=== PATIENT | female | born 1955 | race Caucasian/White ===

== ENCOUNTER 2017-09-10 14:53 | Inpatient (IN) | payer BC ==
[~2017-09-10] VITALS: Ht 162.6 cm; Wt 79.0 kg
[~2017-09-10 14:53] MED LIST: ALBU18HF2 INH; ASPI81TA30 PO; BUDE10.2 INH; CA C1TAB86 PO; GUAI600T45 PO; LACT1CAP26 PO; METH4TAB3 PO; MULT-933 PO
[2017-09-10] MEDS ORDERED: acetaminophen 325mg tablet PO STA (15:04)
[2017-09-10] MEDS ORDERED: normal saline 1000ML IV soln IV ONE (15:05)
[2017-09-10] MEDS ORDERED: normal saline 1000ML IV soln IVB ONE (15:10)
[2017-09-10] MEDS ORDERED: magnesium 2GM in 50ml NS 50 ML IV ONE (15:10)
[2017-09-10] MEDS ORDERED: albuterol 2.5 MG/3 ML nebule CONTNEB PRN (15:10)
[2017-09-10] MEDS ORDERED: methylPREDNISolone sod succ 125mg/2ml vial IV ONE (15:10)
[2017-09-10 15:51] LABS: ABG BASE EXCESS 4.3 mmol/L (-2.0-3.0); ABG HCO3 30.4 mmol/L (22.0-26.0); ABG OXYGEN SATURATION 94.5 % (95-98); ABG PCO2 (T) 50.5 mmHg (32.0-45.0); ABG PH (T) 7.398 (7.350-7.450); ABG PO2 (T) 76.4 mmHg (83-108); ALLEN'S TEST Positive; FCOHb 4.8 % (0.5-1.5); FLOW 2 L/min; TOTAL HEMOGLOBIN 16.1 G/dl (12.0-16.0)
[2017-09-10 16:03] LABS: BASOPHILS % (AUTO) 0.2 % (0-1); EOSINOPHILS # (AUTO) 0.1 X10'3 (0-0.9); EOSINOPHILS % (AUTO) 1.2 % (0-6); HEMATOCRIT 47.8 % (35.0-45.0); HEMOGLOBIN 15.6 g/dl (12.0-16.0); LYMPHOCYTES # (AUTO) 1.5 X10'3 (1.1-4.8); LYMPHOCYTES % (AUTO) 18.9 % (21-51); MEAN CORPUSCULAR HGB CONC 32.6 % (33.0-36.5); MEAN CORPUSCULAR VOLUME 94.9 FL (78-98); MEAN PLATELET VOLUME 8.6 FL (7.4-10.4); MONOCYTES # (AUTO) 0.6 X10'3 (0-0.9); MONOCYTES % (AUTO) 7.6 % (2-12); NEUTROPHILS # (AUTO) 5.5 X10'3 (1.8-7.7); NEUTROPHILS % (AUTO) 72.1 % (42-75); PLATELET COUNT 160 X10'3 (140-440); RED BLOOD COUNT 5.04 X10'6 (4.20-5.60); RED CELL DISTRIBUTION WIDTH 14.5 % (11.5-14.5); WHITE BLOOD COUNT 7.7 X10'3 (4.5-11.0)
[2017-09-10 16:29] LABS: ALANINE AMINOTRANSFERASE 28 U/L (12-78); ALBUMIN 3.3 G/DL (3.4-5.0); ALKALINE PHOSPHATASE 92 IU/L (46-116); ANION GAP 4 (8-16); ASPARTATE AMINO TRANSFERASE 15 U/L (10-37); BILIRUBIN,TOTAL 0.3 MG/DL (0.1-1.0); BLOOD UREA NITROGEN 14 MG/DL (7-18); BUN/CREATININE RATIO 14.9 (6.6-38.0); CALCIUM 9.9 MG/DL (8.5-10.1); CHLORIDE 110 MMOL/L (99-107); CREATININE 0.94 MG/DL (0.40-0.90); GLUCOSE 102 MG/DL (70-104); POTASSIUM 3.9 MMOL/L (3.5-5.1); SODIUM 148 MMOL/L (135-145); TOTAL CARBON DIOXIDE 34.1 MMOL/L (24-32); TOTAL PROTEIN 6.6 G/DL (6.4-8.2); eGFR 61 ML/MIN
[2017-09-10] MEDS ORDERED: CefTRIAXone 2gm/NS 100ml IVPB 100 ML IV ONE ×2 (16:50→17:15)
[2017-09-10] MEDS ORDERED: CefTRIAXone/dextrose 2GM bag 50 ML IV ONE (17:15)
[2017-09-10] MEDS ORDERED: mag hydrox/Alum hydrox/simeth 30ml oral suspension PO PRN (17:55)
[2017-09-10] MEDS ORDERED: magnesium hydroxide 30ml (MOM) UD suspension PO PRN (17:55)
[2017-09-10] MEDS ORDERED: ondansetron/PF 4mg/2ml inj IV PRN (17:55)
[2017-09-10] MEDS ORDERED: acetaminophen 325mg tablet PO PRN ×2 (17:55)
[2017-09-10] MEDS ORDERED: IPRA3AMP IH (18:53)
[2017-09-10] MEDS: normal saline 1000ml 1,000 ML IV SCH (19:10)
[2017-09-10] MEDS: ipratropium/albuterol 3ml nebule NEB PRN (19:41)
[2017-09-10] MEDS: methylPREDNISolone sod succ 125mg/2ml vial IV SCH (21:07)
[2017-09-10 21:58] LABS: INFLUENZA TYPE A ANTIGEN RAPID NEGATIVE (Neg); INFLUENZA TYPE B ANTIGEN RAPID NEGATIVE (Neg)
[2017-09-10 22:30] VITALS: BP 124/79
[2017-09-11] VITALS: BP 140/68
[2017-09-11] MEDS: methylPREDNISolone sod succ 125mg/2ml vial IV SCH ×3 (02:21→16:39)
[2017-09-11] MEDS: normal saline 1000ml 1,000 ML IV SCH ×2 (04:09→12:26)
[2017-09-11 05:57] LABS: BASOPHILS % (AUTO) 0.2 % (0-1); EOSINOPHILS % (AUTO) 0.6 % (0-6); HEMATOCRIT 43.8 % (35.0-45.0); HEMOGLOBIN 14.4 g/dl (12.0-16.0); LYMPHOCYTES # (AUTO) 0.6 X10'3 (1.1-4.8); LYMPHOCYTES % (AUTO) 14.6 % (21-51); MEAN CORPUSCULAR HEMOGLOBIN 31.1 PG (27.0-31.0); MEAN CORPUSCULAR HGB CONC 32.9 % (33.0-36.5); MEAN CORPUSCULAR VOLUME 94.5 FL (78-98); MEAN PLATELET VOLUME 8.8 FL (7.4-10.4); NEUTROPHILS # (AUTO) 3.6 X10'3 (1.8-7.7); NEUTROPHILS % (AUTO) 83.6 % (42-75); PLATELET COUNT 155 X10'3 (140-440); RED BLOOD COUNT 4.64 X10'6 (4.20-5.60); RED CELL DISTRIBUTION WIDTH 14.5 % (11.5-14.5); WHITE BLOOD COUNT 4.3 X10'3 (4.5-11.0)
[2017-09-11] MEDS: ipratropium/albuterol 3ml nebule NEB PRN ×2 (06:04→20:11)
[2017-09-11 06:25] LABS: ANION GAP 4 (8-16); BLOOD UREA NITROGEN 12 MG/DL (7-18); BUN/CREATININE RATIO 17.6 (6.6-38.0); CALCIUM 9.2 MG/DL (8.5-10.1); CHLORIDE 111 MMOL/L (99-107); CREATININE 0.68 MG/DL (0.40-0.90); GLUCOSE 139 MG/DL (70-104); POTASSIUM 4.4 MMOL/L (3.5-5.1); SODIUM 146 MMOL/L (135-145); TOTAL CARBON DIOXIDE 31.1 MMOL/L (24-32); eGFR 88 ML/MIN
[2017-09-11] MEDS: enoxaparin 40mg/0.4ml syringe SUBCUT SCH (07:28)
[2017-09-11] MEDS ORDERED: lactobacillus rhamnosus 10,000 MMU CELLS/CAPSULE PO SCH (07:30)
[2017-09-11 07:36] VITALS: BP 124/67
[2017-09-11] MEDS ORDERED: nicotine 21mg patch - 24 hr TD ONE (08:00)
[2017-09-11] MEDS ORDERED: CefTRIAXone 2gm/NS 100ml IVPB 100 ML IV SCH (08:00)
[2017-09-11] MEDS: aspirin 81mg tab.chew PO SCH (09:13)
[2017-09-11] MEDS: HYDROcodone/acetaminophen 5mg/325mg tablet PO PRN ×2 (09:13→19:09)
[2017-09-11] MEDS ORDERED: LORazepam 0.5 MG tablet PO ONE (09:55)
[2017-09-11 11:57] VITALS: BP 103/61
[2017-09-11] MEDS ORDERED: CefTRIAXone 2gm/D5W 50ml ADVTG 50 ML IV SCH (19:38)
[2017-09-11 20:00] VITALS: BP 148/87
[2017-09-11 23:00] VITALS: BP 161/85
[2017-09-12] MEDS: methylPREDNISolone sod succ 125mg/2ml vial IV SCH ×2 (00:26→07:29)
[2017-09-12] MEDS: HYDROcodone/acetaminophen 5mg/325mg tablet PO PRN (00:32)
[2017-09-12] MEDS: normal saline 1000ml 1,000 ML IV SCH ×2 (04:11→07:30)
[2017-09-12 06:14] LABS: BASOPHILS % (AUTO) 0 % (0-1); EOSINOPHILS # (AUTO) 0.1 X10'3 (0-0.9); EOSINOPHILS % (AUTO) 1.1 % (0-6); HEMATOCRIT 42.4 % (35.0-45.0); HEMOGLOBIN 14.1 g/dl (12.0-16.0); LYMPHOCYTES # (AUTO) 0.7 X10'3 (1.1-4.8); LYMPHOCYTES % (AUTO) 5.2 % (21-51); MEAN CORPUSCULAR HEMOGLOBIN 31.4 PG (27.0-31.0); MEAN CORPUSCULAR HGB CONC 33.2 % (33.0-36.5); MEAN CORPUSCULAR VOLUME 94.4 FL (78-98); MEAN PLATELET VOLUME 8.6 FL (7.4-10.4); MONOCYTES # (AUTO) 0.2 X10'3 (0-0.9); MONOCYTES % (AUTO) 1.8 % (2-12); NEUTROPHILS # (AUTO) 12.4 X10'3 (1.8-7.7); NEUTROPHILS % (AUTO) 91.9 % (42-75); PLATELET COUNT 159 X10'3 (140-440); RED BLOOD COUNT 4.49 X10'6 (4.20-5.60); RED CELL DISTRIBUTION WIDTH 14.5 % (11.5-14.5); WHITE BLOOD COUNT 13.4 X10'3 (4.5-11.0)
[2017-09-12 07:19] LABS: ALBUMIN 2.9 G/DL (3.4-5.0); ANION GAP 9 (8-16); BLOOD UREA NITROGEN 19 MG/DL (7-18); BUN/CREATININE RATIO 26.4 (6.6-38.0); CALCIUM 9.4 MG/DL (8.5-10.1); CHLORIDE 111 MMOL/L (99-107); CREATININE 0.72 MG/DL (0.40-0.90); GLUCOSE 154 MG/DL (70-104); POTASSIUM 4.6 MMOL/L (3.5-5.1); SODIUM 145 MMOL/L (135-145); TOTAL CARBON DIOXIDE 25.1 MMOL/L (24-32); eGFR 83 ML/MIN
[2017-09-12] MEDS: enoxaparin 40mg/0.4ml syringe SUBCUT SCH (07:29)
[2017-09-12] MEDS: aspirin 81mg tab.chew PO SCH (07:29)
[2017-09-12] MEDS ORDERED: LACTOBACILLUS RHAMNOSUS GG 15 billion unit sprinkle caps PO SCH (07:30)
[2017-09-12 07:49] VITALS: BP 158/81
[2017-09-12 11:00] VITALS: BP 150/81
[2017-09-12] MEDS ORDERED: doxycycline hyclate 100mg tablet.DR PO ONE (12:15)
[2017-09-12] MEDS ORDERED: DOXY100C2 PO (14:08)
[2017-09-12] MEDS ORDERED: PRED10TA23 PO (14:08)
== END 2017-09-12 15:14 | disposition home or self-care (01) | DRG 189 ==
LOC: ER 14:54 → ED HOLD 17:54 → EDBEDREQ 19:45 → MED 3N 20:11
PROVIDERS: ADMIT Internal Medicine; ATTEND Family Medicine
DX: J96.21 Acute and chronic respiratory failure with hypoxia (principal); J18.9 Pneumonia, unspecified organism; E87.0 Hyperosmolality and hypernatremia; J44.0 Chronic obstructive pulmonary disease with (acute) lower respiratory infection; E86.0 Dehydration; Z99.81 Dependence on supplemental oxygen; J44.1 Chronic obstructive pulmonary disease with (acute) exacerbation; F17.210 Nicotine dependence, cigarettes, uncomplicated; G47.33 Obstructive sleep apnea (adult) (pediatric); J61 Pneumoconiosis due to asbestos and other mineral fibers; Z72.0 Tobacco use; Z88.1 Allergy status to other antibiotic agents; Z88.8 Allergy status to other drugs, medicaments and biological substances
CPT/HCPCS: 36415; 36600; 71045; 80048; 80053; 82803; 83605; 83880; 84484; 85018; 85025; 87040; 87070; 87275; 87276; 93005; 94640; 94760; 96365; 96375; 99285; J0696; J1650; J2930; J3475; J7030

== ENCOUNTER 2017-10-03 19:17 | Inpatient (IN) | payer BC ==
[~2017-10-03] VITALS: Ht 160 cm; Wt 80.0 kg
[~2017-10-03 19:17] MED LIST changes: +DOXY100C2 PO; -GUAI600T45 PO; +IPRA3AMP IH; -LACT1CAP26 PO; -METH4TAB3 PO; +PRED10TA23 PO
[2017-10-03] MEDS ORDERED: doxycycline hyclate 100mg tablet.DR PO STA (19:49)
[2017-10-03] MEDS ORDERED: methylPREDNISolone sod succ 125mg/2ml vial IV ONE (19:50)
[2017-10-03] MEDS ORDERED: ipratropium/albuterol 3ml nebule NEB ONE (19:50)
[2017-10-03] MEDS ORDERED: magnesium 2GM in 50ml NS 50 ML IV ONE (19:50)
[2017-10-03 19:53] LABS: BASOPHILS % (AUTO) 0.3 % (0-1); EOSINOPHILS % (AUTO) 0.1 % (0-6); HEMATOCRIT 45.3 % (35.0-45.0); HEMOGLOBIN 15.7 g/dl (12.0-16.0); LYMPHOCYTES % (AUTO) 6.2 % (21-51); MEAN CORPUSCULAR HEMOGLOBIN 31.8 PG (27.0-31.0); MEAN CORPUSCULAR HGB CONC 34.7 % (33.0-36.5); MEAN CORPUSCULAR VOLUME 91.9 FL (78-98); MONOCYTES # (AUTO) 0.8 X10'3 (0-0.9); NEUTROPHILS # (AUTO) 14.1 X10'3 (1.8-7.7); NEUTROPHILS % (AUTO) 88.4 % (42-75); PLATELET COUNT 201 X10'3 (140-440); RED BLOOD COUNT 4.93 X10'6 (4.20-5.60); RED CELL DISTRIBUTION WIDTH 14.4 % (11.5-14.5); WHITE BLOOD COUNT 15.9 X10'3 (4.5-11.0)
[2017-10-03 20:16] LABS: ALANINE AMINOTRANSFERASE 23 U/L (12-78); ALBUMIN 3.3 G/DL (3.4-5.0); ALKALINE PHOSPHATASE 77 IU/L (46-116); ANION GAP 6 (8-16); ASPARTATE AMINO TRANSFERASE 10 U/L (10-37); BILIRUBIN,TOTAL 0.6 MG/DL (0.1-1.0); BLOOD UREA NITROGEN 14 MG/DL (7-18); CALCIUM 9.3 MG/DL (8.5-10.1); CHLORIDE 107 MMOL/L (99-107); GLUCOSE 136 MG/DL (70-104); POTASSIUM 3.8 MMOL/L (3.5-5.1); SODIUM 142 MMOL/L (135-145); TOTAL CARBON DIOXIDE 29.1 MMOL/L (24-32); TOTAL PROTEIN 6.7 G/DL (6.4-8.2); eGFR 57 ML/MIN
[2017-10-03] MEDS: CefTRIAXone 2gm/NS 100ml IVPB 100 ML IV ONE ×2 (20:23→21:43)
[2017-10-03] MEDS ORDERED: temazepam 15mg capsule PO PRN (21:00)
[2017-10-03] MEDS ORDERED: non-formulary drug (Albuterol Sulfate (Ventolin Hfa) 2 PUFFS) INH PRN (21:10)
[2017-10-03] MEDS ORDERED: normal saline 1000ml 1,000 ML IV SCH (21:11)
[2017-10-03] MEDS ORDERED: mag hydrox/Alum hydrox/simeth 30ml oral suspension PO PRN (21:15)
[2017-10-03] MEDS ORDERED: magnesium hydroxide 30ml (MOM) UD suspension PO PRN (21:15)
[2017-10-03] MEDS ORDERED: diphenhydrAMINE 25mg capsule PO PRN (21:15)
[2017-10-03] MEDS ORDERED: bisacodyl 10mg suppository rectal RC PRN (21:15)
[2017-10-03] MEDS ORDERED: diphenhydrAMINE 50 mg/ml inj IV PRN (21:15)
[2017-10-03] MEDS ORDERED: HYDROmorphone 2mg/ml vial IV PRN ×2 (21:15)
[2017-10-03] MEDS ORDERED: morphine 2 MG/ML inj. syringe IV PRN ×2 (21:15)
[2017-10-03] MEDS ORDERED: acetaminophen 650mg rectal suppository RC PRN (21:15)
[2017-10-03] MEDS ORDERED: albuterol 2.5 MG/3 ML nebule NEB PRN (21:15)
[2017-10-03] MEDS ORDERED: HYDROcodone/acetaminophen 5mg/325mg tablet PO PRN (21:15)
[2017-10-03] MEDS ORDERED: acetaminophen 325mg tablet PO PRN ×2 (21:15)
[2017-10-03] MEDS ORDERED: metoclopramide 5 mg/ml inj IV PRN (21:15)
[2017-10-03] MEDS ORDERED: ondansetron/PF 4mg/2ml inj IV PRN (21:15)
[2017-10-03 21:30] LABS: MAGNESIUM 1.8 MG/DL (1.5-2.4); PHOSPHORUS 2.3 MG/DL (2.3-4.5)
[2017-10-03] MEDS ORDERED: ASCO500C15 PO (21:55)
[2017-10-04] VITALS: BP 127/74
[2017-10-04] MEDS: guaiFENesin 200 MG/10 ML oral syrup UD cup PO PRN (00:05)
[2017-10-04 05:18] LABS: BASOPHILS % (AUTO) 0 % (0-1); EOSINOPHILS # (AUTO) 0.2 X10'3 (0-0.9); EOSINOPHILS % (AUTO) 1.3 % (0-6); HEMATOCRIT 44.8 % (35.0-45.0); HEMOGLOBIN 15.1 g/dl (12.0-16.0); LYMPHOCYTES # (AUTO) 0.4 X10'3 (1.1-4.8); LYMPHOCYTES % (AUTO) 2.6 % (21-51); MEAN CORPUSCULAR HEMOGLOBIN 31.5 PG (27.0-31.0); MEAN CORPUSCULAR HGB CONC 33.8 % (33.0-36.5); MEAN CORPUSCULAR VOLUME 93.1 FL (78-98); MEAN PLATELET VOLUME 8.6 FL (7.4-10.4); MONOCYTES # (AUTO) 0.1 X10'3 (0-0.9); MONOCYTES % (AUTO) 0.7 % (2-12); NEUTROPHILS # (AUTO) 14.1 X10'3 (1.8-7.7); NEUTROPHILS % (AUTO) 95.4 % (42-75); PLATELET COUNT 183 X10'3 (140-440); RED CELL DISTRIBUTION WIDTH 14.3 % (11.5-14.5); WHITE BLOOD COUNT 14.8 X10'3 (4.5-11.0)
[2017-10-04 05:31] LABS: ALANINE AMINOTRANSFERASE 23 U/L (12-78); ALBUMIN 2.9 G/DL (3.4-5.0); ALBUMIN/GLOBULIN RATIO 0.8 (1.1-1.5); ALKALINE PHOSPHATASE 73 IU/L (46-116); ANION GAP 6 (8-16); ASPARTATE AMINO TRANSFERASE 11 U/L (10-37); BILIRUBIN,TOTAL 0.3 MG/DL (0.1-1.0); BLOOD UREA NITROGEN 19 MG/DL (7-18); BUN/CREATININE RATIO 21.1 (6.6-38.0); CALCIUM 9.2 MG/DL (8.5-10.1); CHLORIDE 109 MMOL/L (99-107); GLUCOSE 174 MG/DL (70-104); POTASSIUM 4.3 MMOL/L (3.5-5.1); SODIUM 144 MMOL/L (135-145); TOTAL CARBON DIOXIDE 29.5 MMOL/L (24-32); TOTAL PROTEIN 6.4 G/DL (6.4-8.2); eGFR 64 ML/MIN
[2017-10-04 07:29] VITALS: BP 113/57
[2017-10-04] MEDS ORDERED: doxycycline inj 100 MG in normal saline 100ml IV soln 100 ML IV SCH (08:00)
[2017-10-04] MEDS ORDERED: ASPIRIN PO SCH (08:00)
[2017-10-04] MEDS: docusate sod 100mg capsule PO SCH ×2 (08:28→19:59)
[2017-10-04] MEDS: pantoprazole 40mg Tablet.DR PO SCH (08:28)
[2017-10-04] MEDS: aspirin 81mg tab.chew PO SCH (08:28)
[2017-10-04] MEDS: heparin, porcine 5000 units/ml vial SQ SCH ×2 (08:29→19:59)
[2017-10-04] MEDS ORDERED: methylPREDNISolone sod succ 125mg/2ml vial IV ONE (11:15)
[2017-10-04] MEDS: nicotine 14mg patch - 24hr TD SCH (12:41)
[2017-10-04] MEDS: ipratropium/albuterol 3ml nebule NEB SCH ×3 (14:56→23:26)
[2017-10-04] MEDS: piperacillin/tazo 3.375gm/50ml 50 ML IV SCH ×2 (15:48→20:00)
[2017-10-04] MEDS: methylPREDNISolone sod succ 125mg/2ml vial IV SCH (15:48)
[2017-10-04] MEDS: lactobacillus rhamnosus 10,000 MMU CELLS/CAPSULE PO SCH (17:53)
[2017-10-04 20:00] VITALS: BP 110/62
[2017-10-04] MEDS: HYDROcodone/acetaminophen 10/325mg tab PO PRN (20:00)
[2017-10-05] VITALS: BP 135/60
[2017-10-05] MEDS: methylPREDNISolone sod succ 125mg/2ml vial IV SCH ×2 (01:03→07:59)
[2017-10-05] MEDS: piperacillin/tazo 3.375gm/50ml 50 ML IV SCH ×3 (01:05→14:00)
[2017-10-05] MEDS: ipratropium/albuterol 3ml nebule NEB SCH ×3 (03:10→12:10)
[2017-10-05] MEDS: guaiFENesin 200 MG/10 ML oral syrup UD cup PO PRN (03:25)
[2017-10-05 06:09] LABS: BASOPHILS % (AUTO) 0.1 % (0-1); EOSINOPHILS # (AUTO) 0.2 X10'3 (0-0.9); EOSINOPHILS % (AUTO) 1.7 % (0-6); HEMOGLOBIN 14.1 g/dl (12.0-16.0); LYMPHOCYTES # (AUTO) 0.4 X10'3 (1.1-4.8); LYMPHOCYTES % (AUTO) 2.7 % (21-51); MEAN CORPUSCULAR HEMOGLOBIN 31.8 PG (27.0-31.0); MEAN CORPUSCULAR HGB CONC 34.3 % (33.0-36.5); MEAN CORPUSCULAR VOLUME 92.7 FL (78-98); MEAN PLATELET VOLUME 8.6 FL (7.4-10.4); MONOCYTES # (AUTO) 0.3 X10'3 (0-0.9); MONOCYTES % (AUTO) 1.9 % (2-12); NEUTROPHILS % (AUTO) 93.6 % (42-75); PLATELET COUNT 193 X10'3 (140-440); RED BLOOD COUNT 4.42 X10'6 (4.20-5.60); RED CELL DISTRIBUTION WIDTH 14.4 % (11.5-14.5); WHITE BLOOD COUNT 14.9 X10'3 (4.5-11.0)
[2017-10-05 06:41] LABS: ALANINE AMINOTRANSFERASE 19 U/L (12-78); ALBUMIN 2.8 G/DL (3.4-5.0); ALBUMIN/GLOBULIN RATIO 0.8 (1.1-1.5); ALKALINE PHOSPHATASE 67 IU/L (46-116); ANION GAP 11 (8-16); ASPARTATE AMINO TRANSFERASE 9 U/L (10-37); BILIRUBIN,TOTAL 0.2 MG/DL (0.1-1.0); BLOOD UREA NITROGEN 20 MG/DL (7-18); CALCIUM 9.6 MG/DL (8.5-10.1); CHLORIDE 107 MMOL/L (99-107); GLUCOSE 183 MG/DL (70-104); POTASSIUM 3.8 MMOL/L (3.5-5.1); SODIUM 144 MMOL/L (135-145); TOTAL CARBON DIOXIDE 26.5 MMOL/L (24-32); TOTAL PROTEIN 6.1 G/DL (6.4-8.2); eGFR 57 ML/MIN
[2017-10-05 07:14] VITALS: BP 101/57
[2017-10-05] MEDS: docusate sod 100mg capsule PO SCH (07:59)
[2017-10-05] MEDS: lactobacillus rhamnosus 10,000 MMU CELLS/CAPSULE PO SCH (07:59)
[2017-10-05] MEDS: pantoprazole 40mg Tablet.DR PO SCH (07:59)
[2017-10-05] MEDS: aspirin 81mg tab.chew PO SCH (07:59)
[2017-10-05] MEDS: heparin, porcine 5000 units/ml vial SQ SCH (08:00)
[2017-10-05] MEDS: nicotine 14mg patch - 24hr TD SCH (08:02)
[2017-10-05] MEDS: HYDROcodone/acetaminophen 10/325mg tab PO PRN (11:49)
[2017-10-05 11:56] VITALS: BP 112/69
[2017-10-05] MEDS ORDERED: PANT40TA4 PO (13:57)
[2017-10-05] MEDS ORDERED: PRED20TA PO (13:57)
[2017-10-05] MEDS ORDERED: LACT1CAP26 PO (13:57)
[2017-10-05] MEDS ORDERED: NICO-631 TD (13:57)
[2017-10-05] MEDS ORDERED: GUAI100L97 PO (13:57)
[2017-10-05] MEDS ORDERED: DOXY-200 PO (13:57)
== END 2017-10-05 15:45 | disposition home or self-care (01) | DRG 190 ==
LOC: ER 19:17 → ED HOLD 21:11 → MED 3N 22:30
PROVIDERS: ADMIT Family Medicine; ATTEND Family Medicine
DX: J44.0 Chronic obstructive pulmonary disease with (acute) lower respiratory infection (principal); J18.9 Pneumonia, unspecified organism; Z99.81 Dependence on supplemental oxygen; J44.1 Chronic obstructive pulmonary disease with (acute) exacerbation; E86.0 Dehydration; F17.200 Nicotine dependence, unspecified, uncomplicated; R09.02 Hypoxemia; D72.829 Elevated white blood cell count, unspecified; R91.1 Solitary pulmonary nodule; Z80.9 Family history of malignant neoplasm, unspecified; Z71.6 Tobacco abuse counseling; Z88.6 Allergy status to analgesic agent; Z91.018 Allergy to other foods; Z88.1 Allergy status to other antibiotic agents
CPT/HCPCS: 36415; 71046; 71250; 80053; 83605; 83735; 83880; 84100; 84484; 85025; 87040; 87070; 87502; 87503; 93005; 94640; 94760; 96374; 99285; J0696; J1170; J1644; J2543; J2930; J3475; J3490; J7030

== ENCOUNTER 2017-12-17 07:20 | Outpatient (CLI) | payer BC ==
[~2017-12-17] VITALS: Ht 160 cm; Wt 77.1 kg
[~2017-12-17 07:20] MED LIST changes: +ASCO500C15 PO; -DOXY100C2 PO; +GUAI100L97 PO; -IPRA3AMP IH; +LACT1CAP26 PO; -MULT-933 PO; +NICO-631 TD; +PANT40TA4 PO; -PRED10TA23 PO
[2017-12-17] MEDS ORDERED: albuterol 2.5 MG/3 ML nebule NEB PRN (07:50)
== END 2017-12-17 23:59 | disposition home or self-care (01) ==
LOC: RT 07:20
PROVIDERS: ATTEND Internal Medicine Critical Care Medicine
DX: J44.9 Chronic obstructive pulmonary disease, unspecified (principal); F17.200 Nicotine dependence, unspecified, uncomplicated; Z79.899 Other long term (current) drug therapy
CPT/HCPCS: 94060; 94640; 94727; 94729; 94760; A6449

== ENCOUNTER 2017-12-26 20:35 | Inpatient (IN) | payer BC ==
[~2017-12-26] VITALS: Ht 160 cm; Wt 84.4 kg
[~2017-12-26 20:35] MED LIST changes: +etomidate 2mg/ml inj. ONE; +rocuronium 10mg/ml inj IV ONE; +sod chloride 0.9% 10ml flush syringe IV ONE
[2017-12-26] MEDS ORDERED: etomidate 2mg/ml inj. IV ONE (20:45)
[2017-12-26] MEDS ORDERED: rocuronium 10mg/ml inj IV ONE (20:45)
[2017-12-26] MEDS ORDERED: fentaNYL/PF 50MCG/1 ML 2ML syringe IV ONE (20:45)
[2017-12-26] MEDS ORDERED: MIDAZolam 5mg/ml 2ml vial IV ONE (20:45)
[2017-12-26] MEDS ORDERED: propofol 1000mg/100ml bottle 100 ML IV ONE (20:55)
[2017-12-26 21:19] LABS: BASOPHILS % (AUTO) 0.5 % (0-1); EOSINOPHILS % (AUTO) 0 % (0-6); HEMATOCRIT 45.4 % (35.0-45.0); HEMOGLOBIN 15.2 g/dl (12.0-16.0); LYMPHOCYTES # (AUTO) 0.5 X10'3 (1.1-4.8); LYMPHOCYTES % (AUTO) 7.8 % (21-51); MEAN CORPUSCULAR HEMOGLOBIN 30.9 PG (27.0-31.0); MEAN CORPUSCULAR HGB CONC 33.5 % (33.0-36.5); MEAN CORPUSCULAR VOLUME 92.2 FL (78-98); MEAN PLATELET VOLUME 8.7 FL (7.4-10.4); MONOCYTES # (AUTO) 0.2 X10'3 (0-0.9); MONOCYTES % (AUTO) 2.9 % (2-12); NEUTROPHILS # (AUTO) 5.6 X10'3 (1.8-7.7); NEUTROPHILS % (AUTO) 88.8 % (42-75); PLATELET COUNT 128 X10'3 (140-440); RED BLOOD COUNT 4.92 X10'6 (4.20-5.60); RED CELL DISTRIBUTION WIDTH 14.9 % (11.5-14.5); WHITE BLOOD COUNT 6.3 X10'3 (4.5-11.0)
[2017-12-26 21:42] LABS: CLARITY,URINE CLEAR (Clear); COLOR,URINE YELLOW (Yellow); GLUCOSE, URINE NEGATIVE (Neg); KETONES,URINE 40 mg/dl (Neg); LEUKOCYTE ESTERASE ,URINE NEGATIVE (Neg); NITRITES, URINE NEGATIVE (Neg); OCCULT BLOOD,URINE SMALL (Neg); PROTEIN,URINE 100 mg/dl (Neg); UROBILINOGEN,URINE 0.2 E.U/dL (0.2-1.0)
[2017-12-26 21:45] LABS: UA COLLECTION TYPE CLN CATCH MIDSTREAM
[2017-12-26] MEDS ORDERED: CefTRIAXone 2gm/D5W 50ml 50 ML IV ONE (21:45)
[2017-12-26 21:50] LABS: HYALINE CASTS 0-3 /LPF (NEGATIVE); MUCUS STRANDS MANY /LPF (Neg); SQUAMOUS EPITHELIAL CELL,UR MANY /LPF (FEW)
[2017-12-26 21:53] LABS: BACTERIA,URINE NONE SEEN /HPF (Neg); INR 0.9 INR; PARTIAL THROMBOPLASTIN TIME 29 SECONDS (22-32); PROTHROMBIN TIME 9.8 SECONDS (9.0-12.0); WBC,URINE 0-4 /HPF (0-4)
[2017-12-26 21:55] LABS: ALANINE AMINOTRANSFERASE 23 U/L (12-78); ALBUMIN 3.1 G/DL (3.4-5.0); ALBUMIN/GLOBULIN RATIO 0.8 (1.1-1.5); ALKALINE PHOSPHATASE 83 IU/L (46-116); ANION GAP 11 (8-16); ASPARTATE AMINO TRANSFERASE 28 U/L (10-37); BILIRUBIN,TOTAL 0.4 MG/DL (0.1-1.0); BLOOD UREA NITROGEN 14 MG/DL (7-18); CALCIUM 9.1 MG/DL (8.5-10.1); CHLORIDE 105 MMOL/L (99-107); CREATININE 0.61 MG/DL (0.40-0.90); GLUCOSE 170 MG/DL (70-104); SODIUM 141 MMOL/L (135-145); TOTAL CARBON DIOXIDE 24.7 MMOL/L (24-32); TOTAL PROTEIN 6.8 G/DL (6.4-8.2); eGFR > 90 ML/MIN
[2017-12-26 21:56] LABS: POTASSIUM 4.4 MMOL/L (3.5-5.1)
[2017-12-26] MEDS ORDERED: propofol 1000mg/100ml bottle 100 ML IV PRN (22:03)
[2017-12-26] MEDS ORDERED: potassium Cl 40MEQ/250ML bag 250 ML IV SCH (22:05)
[2017-12-26] MEDS ORDERED: potassium Cl 40MEQ/250ML bag 250 ML IV PRN (22:05)
[2017-12-26] MEDS: K, MAG and/or Phos replacement - Verify level? MC SCH (22:05)
[2017-12-26] MEDS ORDERED: methylPREDNISolone sod succ 125mg/2ml vial IV ONE (22:05)
[2017-12-26] MEDS ORDERED: acetaminophen 325mg tablet PO PRN ×2 (22:05)
[2017-12-26] MEDS ORDERED: ondansetron/PF 4mg/2ml inj IV PRN (22:05)
[2017-12-26] MEDS ORDERED: magnesium hydroxide 30ml (MOM) UD suspension PO PRN (22:05)
[2017-12-26] MEDS ORDERED: morphine 4 MG/ML inj SYRINge IV PRN ×2 (22:05)
[2017-12-26] MEDS ORDERED: potassium Cl 20 mEq SR tablet PO PRN ×2 (22:05)
[2017-12-26] MEDS ORDERED: ipratropium/albuterol 3ml nebule NEB PRN (22:05)
[2017-12-26 22:51] LABS: ABG BASE EXCESS -8.2 mmol/L (-2.0-3.0); ABG HCO3 19.7 mmol/L (22.0-26.0); ABG OXYGEN SATURATION 95.5 % (95-98); ABG PCO2 (T) 51.1 mmHg (32.0-45.0); ABG PH (T) 7.208 (7.350-7.450); ABG PO2 (T) 94.2 mmHg (83-108); FCOHb 0.5 % (0.5-1.5); FMetHb 0.3 % (0.3-1.12); FO2Hb 94.7 % (94-100); MINUTE VOLUME 7 L/min; PATIENT TEMPERATURE 37.8; PEEP 5 cm H2O; RESPIRATORY RATE 16 b/min; RESPIRATORY RATE (OBSERVED) 16 b/min; TIDAL VOLUME 450 mL
[2017-12-26 23:04] LABS: TOTAL CELLS COUNTED 100
[2017-12-26 23:05] LABS: PLATELET ESTIMATE DECREASED
[2017-12-26] MEDS ORDERED: albuterol 2.5 MG/3 ML nebule NEB PRN (23:10)
[2017-12-26] MEDS: normal saline 1000ml 1,000 ML IV SCH (23:13)
[2017-12-26] MEDS: midazolam 100mg in NS 100ml 100 ML IV PRN (23:39)
[2017-12-26] MEDS: FENTANYL-0.9 % NACL/PF 100 ML IV PRN (23:44)
[2017-12-27] VITALS (8 sets, daily range): BP systolic 84–104; BP diastolic 44–49
[2017-12-27] MEDS: ipratropium/albuterol 3ml nebule NEB SCH ×7 (00:46→23:12)
[2017-12-27] MEDS: methylPREDNISolone sod succ/PF 40mg inj. IV SCH ×4 (02:05→20:32)
[2017-12-27 03:36] LABS: OXYGEN SATURATION (MIXED VEN) 83.8 % (60-80); PO2 MIXED VENOUS (TEMP COR) 46.1 mmHg (35-46)
[2017-12-27 03:36] LABS: BASOPHILS % (AUTO) 0 % (0-1); EOSINOPHILS % (AUTO) 0.6 % (0-6); HEMATOCRIT 40.8 % (35.0-45.0); HEMOGLOBIN 13.9 g/dl (12.0-16.0); LYMPHOCYTES # (AUTO) 0.3 X10'3 (1.1-4.8); LYMPHOCYTES % (AUTO) 4.9 % (21-51); MEAN CORPUSCULAR HEMOGLOBIN 31.2 PG (27.0-31.0); MEAN CORPUSCULAR VOLUME 91.7 FL (78-98); MEAN PLATELET VOLUME 8.6 FL (7.4-10.4); MONOCYTES # (AUTO) 0.1 X10'3 (0-0.9); MONOCYTES % (AUTO) 2.7 % (2-12); NEUTROPHILS # (AUTO) 4.7 X10'3 (1.8-7.7); NEUTROPHILS % (AUTO) 91.8 % (42-75); PLATELET COUNT 112 X10'3 (140-440); RED BLOOD COUNT 4.45 X10'6 (4.20-5.60); RED CELL DISTRIBUTION WIDTH 14.5 % (11.5-14.5); WHITE BLOOD COUNT 5.1 X10'3 (4.5-11.0)
[2017-12-27 03:36] LABS: ABG BASE EXCESS -3.1 mmol/L (-2.0-3.0); ABG HCO3 22.4 mmol/L (22.0-26.0); ABG OXYGEN SATURATION 94.9 % (95-98); ABG PCO2 (T) 41.1 mmHg (32.0-45.0); ABG PH (T) 7.353 (7.350-7.450); ABG PO2 (T) 73.4 mmHg (83-108); FCOHb 0.5 % (0.5-1.5); FMetHb 0.3 % (0.3-1.12); FO2Hb 94.1 % (94-100); MINUTE VOLUME 9 L/min; PATIENT TEMPERATURE 36.7; PEEP 5 cm H2O; RESPIRATORY RATE 22 b/min; RESPIRATORY RATE (OBSERVED) 22 b/min; TIDAL VOLUME 400 mL; TOTAL HEMOGLOBIN 14.1 G/dl (12.0-16.0)
[2017-12-27 03:53] LABS: ALANINE AMINOTRANSFERASE 25 U/L (12-78); ALBUMIN 2.7 G/DL (3.4-5.0); ALBUMIN/GLOBULIN RATIO 0.8 (1.1-1.5); ALKALINE PHOSPHATASE 72 IU/L (46-116); ANION GAP 10 (8-16); ASPARTATE AMINO TRANSFERASE 25 U/L (10-37); BILIRUBIN,TOTAL 0.2 MG/DL (0.1-1.0); BLOOD UREA NITROGEN 18 MG/DL (7-18); BUN/CREATININE RATIO 23.7 (6.6-38.0); CALCIUM 8.9 MG/DL (8.5-10.1); CHLORIDE 108 MMOL/L (99-107); CREATININE 0.76 MG/DL (0.40-0.90); GLUCOSE 170 MG/DL (70-104); POTASSIUM 4.2 MMOL/L (3.5-5.1); SODIUM 143 MMOL/L (135-145); TOTAL CARBON DIOXIDE 24.7 MMOL/L (24-32); TOTAL PROTEIN 6.2 G/DL (6.4-8.2); eGFR 78 ML/MIN
[2017-12-27] MEDS: calcium carbonate/vitamin D3 tablet PO SCH (07:30)
[2017-12-27] MEDS: midazolam 100mg in NS 100ml 100 ML IV PRN ×4 (07:50→15:05)
[2017-12-27] MEDS: nicotine 14mg patch - 24hr TD SCH (08:00)
[2017-12-27] MEDS: lactobacillus rhamnosus 10,000 MMU CELLS/CAPSULE PO SCH ×2 (08:00→20:31)
[2017-12-27] MEDS: fluticasone/vilanterol 200mcg/25mcg inhaler IH SCH (08:00)
[2017-12-27] MEDS: ascorbic acid 500mg tablet PO SCH (08:00)
[2017-12-27] MEDS: aspirin 81mg tab.chew PO SCH (08:30)
[2017-12-27] MEDS: K, MAG and/or Phos replacement - Verify level? MC SCH (08:46)
[2017-12-27] MEDS: CefTRIAXone 2gm/D5W 50ml 50 ML IV SCH (08:51)
[2017-12-27] MEDS: pantoprazole 40 MG vial IV SCH (08:54)
[2017-12-27] MEDS: enoxaparin 40mg/0.4ml syringe SUBCUT SCH (09:14)
[2017-12-27] MEDS: normal saline 1000ml 1,000 ML IV SCH (11:23)
[2017-12-27] MEDS: FENTANYL-0.9 % NACL/PF 100 ML IV PRN ×2 (15:08→20:33)
[2017-12-28] VITALS (24 sets, daily range): BP systolic 85–120; BP diastolic 43–66
[2017-12-28] MEDS ORDERED: normal saline 1000ml 1,000 ML IVB ONE (00:09)
[2017-12-28] MEDS: normal saline 1000ml 1,000 ML IV SCH ×3 (00:54→18:51)
[2017-12-28] MEDS: midazolam 100mg in NS 100ml 100 ML IV PRN ×2 (01:13→22:11)
[2017-12-28] MEDS: mineral oil/petrolatum ophthal oint EACHEYE SCH ×4 (02:37→20:51)
[2017-12-28] MEDS: methylPREDNISolone sod succ/PF 40mg inj. IV SCH ×2 (02:37→08:20)
[2017-12-28] MEDS: ipratropium/albuterol 3ml nebule NEB SCH ×6 (03:23→23:09)
[2017-12-28 03:57] LABS: BASOPHILS % (AUTO) 0.1 % (0-1); EOSINOPHILS # (AUTO) 0.1 X10'3 (0-0.9); EOSINOPHILS % (AUTO) 1.1 % (0-6); HEMATOCRIT 36.3 % (35.0-45.0); HEMOGLOBIN 11.9 g/dl (12.0-16.0); LYMPHOCYTES # (AUTO) 0.4 X10'3 (1.1-4.8); LYMPHOCYTES % (AUTO) 5.6 % (21-51); MEAN CORPUSCULAR HEMOGLOBIN 30.4 PG (27.0-31.0); MEAN CORPUSCULAR HGB CONC 32.9 % (33.0-36.5); MEAN CORPUSCULAR VOLUME 92.5 FL (78-98); MEAN PLATELET VOLUME 9.2 FL (7.4-10.4); MONOCYTES # (AUTO) 0.4 X10'3 (0-0.9); MONOCYTES % (AUTO) 5.6 % (2-12); NEUTROPHILS # (AUTO) 6.4 X10'3 (1.8-7.7); NEUTROPHILS % (AUTO) 87.6 % (42-75); PLATELET COUNT 125 X10'3 (140-440); RED BLOOD COUNT 3.92 X10'6 (4.20-5.60); WHITE BLOOD COUNT 7.3 X10'3 (4.5-11.0)
[2017-12-28 04:11] LABS: ABG BASE EXCESS -2.3 mmol/L (-2.0-3.0); ABG HCO3 24.1 mmol/L (22.0-26.0); ABG OXYGEN SATURATION 93.1 % (95-98); ABG PCO2 (T) 45.8 mmHg (32.0-45.0); ABG PH (T) 7.335 (7.350-7.450); FCOHb 0.3 % (0.5-1.5); FMetHb 0.3 % (0.3-1.12); FO2Hb 92.5 % (94-100); MINUTE VOLUME 8 L/min; PATIENT TEMPERATURE 36.1; PEEP 5 cm H2O; RESPIRATORY RATE 12 b/min; RESPIRATORY RATE (OBSERVED) 17 b/min; TIDAL VOLUME 400 mL
[2017-12-28 04:14] LABS: ALANINE AMINOTRANSFERASE 20 U/L (12-78); ALBUMIN 2.4 G/DL (3.4-5.0); ALBUMIN/GLOBULIN RATIO 0.8 (1.1-1.5); ALKALINE PHOSPHATASE 51 IU/L (46-116); ANION GAP 7 (8-16); ASPARTATE AMINO TRANSFERASE 21 U/L (10-37); BILIRUBIN,TOTAL 0.2 MG/DL (0.1-1.0); BLOOD UREA NITROGEN 24 MG/DL (7-18); BUN/CREATININE RATIO 41.4 (6.6-38.0); CHLORIDE 113 MMOL/L (99-107); CREATININE 0.58 MG/DL (0.40-0.90); GLUCOSE 172 MG/DL (70-104); POTASSIUM 3.5 MMOL/L (3.5-5.1); SODIUM 147 MMOL/L (135-145); TOTAL CARBON DIOXIDE 27.2 MMOL/L (24-32); TOTAL PROTEIN 5.4 G/DL (6.4-8.2); eGFR > 90 ML/MIN
[2017-12-28] MEDS ORDERED: NORepinephrine 8mg/ 250ml NS 250 ML IV SCH (04:30)
[2017-12-28] MEDS ORDERED: NORepinephrine 8mg/ 250ml NS 250 ML IV ONE (04:36)
[2017-12-28] MEDS: fluticasone/vilanterol 200mcg/25mcg inhaler IH SCH (07:49)
[2017-12-28] MEDS: K, MAG and/or Phos replacement - Verify level? MC SCH (08:00)
[2017-12-28] MEDS: lactobacillus rhamnosus 10,000 MMU CELLS/CAPSULE PO SCH ×2 (08:20→20:50)
[2017-12-28] MEDS: aspirin 81mg tab.chew PO SCH (08:20)
[2017-12-28] MEDS: pantoprazole 40 MG vial IV SCH (08:20)
[2017-12-28] MEDS: ascorbic acid 500mg tablet PO SCH (08:20)
[2017-12-28] MEDS: calcium carbonate/vitamin D3 tablet PO SCH (08:20)
[2017-12-28] MEDS: enoxaparin 40mg/0.4ml syringe SUBCUT SCH (08:21)
[2017-12-28] MEDS: CefTRIAXone 2gm/D5W 50ml 50 ML IV SCH (08:21)
[2017-12-28] MEDS: nicotine 14mg patch - 24hr TD SCH (08:22)
[2017-12-28] MEDS: methylPREDNISolone sod succ 125mg/2ml vial IV SCH ×2 (14:53→20:50)
[2017-12-28] MEDS: FENTANYL-0.9 % NACL/PF 100 ML IV PRN (21:03)
[2017-12-29] VITALS (23 sets, daily range): BP systolic 103–137; BP diastolic 53–68
[2017-12-29] MEDS: normal saline 1000ml 1,000 ML IV SCH (02:17)
[2017-12-29] MEDS: methylPREDNISolone sod succ 125mg/2ml vial IV SCH ×4 (02:30→20:24)
[2017-12-29] MEDS: mineral oil/petrolatum ophthal oint EACHEYE SCH ×4 (02:30→20:25)
[2017-12-29] MEDS: ipratropium/albuterol 3ml nebule NEB SCH ×6 (03:05→23:09)
[2017-12-29 04:06] LABS: ALANINE AMINOTRANSFERASE 14 U/L (12-78); ALBUMIN 2.4 G/DL (3.4-5.0); ALBUMIN/GLOBULIN RATIO 0.8 (1.1-1.5); ALKALINE PHOSPHATASE 49 IU/L (46-116); ANION GAP 8 (8-16); ASPARTATE AMINO TRANSFERASE 17 U/L (10-37); BILIRUBIN,TOTAL 0.1 MG/DL (0.1-1.0); BLOOD UREA NITROGEN 27 MG/DL (7-18); BUN/CREATININE RATIO 47.4 (6.6-38.0); CALCIUM 9.4 MG/DL (8.5-10.1); CHLORIDE 115 MMOL/L (99-107); CREATININE 0.57 MG/DL (0.40-0.90); GLUCOSE 150 MG/DL (70-104); SODIUM 148 MMOL/L (135-145); TOTAL CARBON DIOXIDE 25.1 MMOL/L (24-32); TOTAL PROTEIN 5.3 G/DL (6.4-8.2); eGFR > 90 ML/MIN
[2017-12-29 04:09] LABS: POTASSIUM 3.9 MMOL/L (3.5-5.1)
[2017-12-29 05:09] LABS: BASOPHILS % (AUTO) 0 % (0-1); EOSINOPHILS # (AUTO) 0.1 X10'3 (0-0.9); EOSINOPHILS % (AUTO) 0.9 % (0-6); HEMATOCRIT 36.4 % (35.0-45.0); HEMOGLOBIN 12.1 g/dl (12.0-16.0); LYMPHOCYTES # (AUTO) 0.4 X10'3 (1.1-4.8); LYMPHOCYTES % (AUTO) 3.2 % (21-51); MEAN CORPUSCULAR HEMOGLOBIN 30.7 PG (27.0-31.0); MEAN CORPUSCULAR HGB CONC 33.2 % (33.0-36.5); MEAN CORPUSCULAR VOLUME 92.4 FL (78-98); MEAN PLATELET VOLUME 8.8 FL (7.4-10.4); MONOCYTES # (AUTO) 0.5 X10'3 (0-0.9); MONOCYTES % (AUTO) 3.9 % (2-12); NEUTROPHILS # (AUTO) 11.5 X10'3 (1.8-7.7); PLATELET COUNT 153 X10'3 (140-440); RED BLOOD COUNT 3.93 X10'6 (4.20-5.60); RED CELL DISTRIBUTION WIDTH 15.4 % (11.5-14.5); WHITE BLOOD COUNT 12.5 X10'3 (4.5-11.0)
[2017-12-29 05:11] LABS: ABG BASE EXCESS -3.1 mmol/L (-2.0-3.0); ABG HCO3 24.1 mmol/L (22.0-26.0); ABG OXYGEN SATURATION 95.6 % (95-98); ABG PCO2 (T) 51.6 mmHg (32.0-45.0); ABG PH (T) 7.286 (7.350-7.450); ABG PO2 (T) 80.7 mmHg (83-108); FCOHb 0.3 % (0.5-1.5); FMetHb 0.3 % (0.3-1.12); MINUTE VOLUME 8 L/min; PATIENT TEMPERATURE 36.9; PEEP 5 cm H2O; RESPIRATORY RATE (OBSERVED) 18 b/min; TOTAL HEMOGLOBIN 12.8 G/dl (12.0-16.0)
[2017-12-29] MEDS: calcium carbonate/vitamin D3 tablet PO SCH (07:30)
[2017-12-29] MEDS: K, MAG and/or Phos replacement - Verify level? MC SCH (08:00)
[2017-12-29] MEDS: fluticasone/vilanterol 200mcg/25mcg inhaler IH SCH (08:00)
[2017-12-29] MEDS: nicotine 14mg patch - 24hr TD SCH (08:34)
[2017-12-29] MEDS: enoxaparin 40mg/0.4ml syringe SUBCUT SCH (08:35)
[2017-12-29] MEDS: CefTRIAXone 2gm/D5W 50ml 50 ML IV SCH (08:35)
[2017-12-29] MEDS: pantoprazole 40 MG vial IV SCH (08:35)
[2017-12-29] MEDS: aspirin 81mg tab.chew PO SCH (08:36)
[2017-12-29] MEDS: lactobacillus rhamnosus 10,000 MMU CELLS/CAPSULE PO SCH ×2 (08:36→20:24)
[2017-12-29] MEDS: ascorbic acid 500mg tablet PO SCH (08:36)
[2017-12-29] MEDS ORDERED: furosemide 20 MG/2 ML vial IV ONE (09:20)
[2017-12-29 10:55] LABS: ABG BASE EXCESS -2.3 mmol/L (-2.0-3.0); ABG HCO3 24.5 mmol/L (22.0-26.0); ABG OXYGEN SATURATION 93.4 % (95-98); ABG PCO2 (T) 49.5 mmHg (32.0-45.0); ABG PO2 (T) 65.2 mmHg (83-108); ALLEN'S TEST Positive; FCOHb 0.3 % (0.5-1.5); FO2Hb 93.1 % (94-100); PATIENT TEMPERATURE 36.7; TOTAL HEMOGLOBIN 13.1 G/dl (12.0-16.0)
[2017-12-29] MEDS: midazolam 100mg in NS 100ml 100 ML IV PRN (20:25)
[2017-12-30] VITALS (24 sets, daily range): BP systolic 111–169; BP diastolic 53–74
[2017-12-30] MEDS: FENTANYL-0.9 % NACL/PF 100 ML IV PRN (00:19)
[2017-12-30] MEDS: mineral oil/petrolatum ophthal oint EACHEYE SCH ×4 (02:55→20:31)
[2017-12-30] MEDS: methylPREDNISolone sod succ 125mg/2ml vial IV SCH ×4 (02:55→20:31)
[2017-12-30 02:56] LABS: BASOPHILS % (AUTO) 0.1 % (0-1); EOSINOPHILS # (AUTO) 0.1 X10'3 (0-0.9); EOSINOPHILS % (AUTO) 1.1 % (0-6); HEMOGLOBIN 11.9 g/dl (12.0-16.0); LYMPHOCYTES # (AUTO) 0.4 X10'3 (1.1-4.8); LYMPHOCYTES % (AUTO) 3.5 % (21-51); MEAN CORPUSCULAR HEMOGLOBIN 30.5 PG (27.0-31.0); MEAN CORPUSCULAR VOLUME 92.4 FL (78-98); MEAN PLATELET VOLUME 8.7 FL (7.4-10.4); MONOCYTES # (AUTO) 0.3 X10'3 (0-0.9); NEUTROPHILS % (AUTO) 92.3 % (42-75); PLATELET COUNT 155 X10'3 (140-440); RED BLOOD COUNT 3.89 X10'6 (4.20-5.60); RED CELL DISTRIBUTION WIDTH 15.5 % (11.5-14.5); WHITE BLOOD COUNT 10.8 X10'3 (4.5-11.0)
[2017-12-30 03:15] LABS: ALANINE AMINOTRANSFERASE 30 U/L (12-78); ALBUMIN 2.5 G/DL (3.4-5.0); ALBUMIN/GLOBULIN RATIO 0.9 (1.1-1.5); ALKALINE PHOSPHATASE 47 IU/L (46-116); ANION GAP 5 (8-16); ASPARTATE AMINO TRANSFERASE 26 U/L (10-37); BILIRUBIN,TOTAL 0.1 MG/DL (0.1-1.0); BLOOD UREA NITROGEN 38 MG/DL (7-18); BUN/CREATININE RATIO 56.7 (6.6-38.0); CALCIUM 9.5 MG/DL (8.5-10.1); CHLORIDE 116 MMOL/L (99-107); CREATININE 0.67 MG/DL (0.40-0.90); GLUCOSE 170 MG/DL (70-104); POTASSIUM 3.8 MMOL/L (3.5-5.1); SODIUM 149 MMOL/L (135-145); TOTAL CARBON DIOXIDE 27.8 MMOL/L (24-32); TOTAL PROTEIN 5.4 G/DL (6.4-8.2); eGFR 90 ML/MIN
[2017-12-30] MEDS: ipratropium/albuterol 3ml nebule NEB SCH ×6 (03:43→22:30)
[2017-12-30 05:20] LABS: ABG BASE EXCESS 1.7 mmol/L (-2.0-3.0); ABG HCO3 28.2 mmol/L (22.0-26.0); ABG OXYGEN SATURATION 94.8 % (95-98); ABG PCO2 (T) 51.8 mmHg (32.0-45.0); ABG PH (T) 7.353 (7.350-7.450); ABG PO2 (T) 74.7 mmHg (83-108); ALLEN'S TEST Positive; FCOHb 0.3 % (0.5-1.5); FMetHb 0.1 % (0.3-1.12); FO2Hb 94.4 % (94-100); MINUTE VOLUME 8 L/min; PATIENT TEMPERATURE 36.6; PEEP 5 cm H2O; RESPIRATORY RATE 14 b/min; RESPIRATORY RATE (OBSERVED) 17 b/min; TIDAL VOLUME 400 mL; TOTAL HEMOGLOBIN 12.8 G/dl (12.0-16.0)
[2017-12-30] MEDS: fluticasone/vilanterol 200mcg/25mcg inhaler IH SCH (08:00)
[2017-12-30] MEDS: K, MAG and/or Phos replacement - Verify level? MC SCH (08:00)
[2017-12-30] MEDS: calcium carbonate/vitamin D3 tablet PO SCH (08:02)
[2017-12-30] MEDS: ascorbic acid 500mg tablet PO SCH (08:02)
[2017-12-30] MEDS: lactobacillus rhamnosus 10,000 MMU CELLS/CAPSULE PO SCH ×2 (08:03→20:31)
[2017-12-30] MEDS: CefTRIAXone 2gm/D5W 50ml 50 ML IV SCH (08:03)
[2017-12-30] MEDS: enoxaparin 40mg/0.4ml syringe SUBCUT SCH (08:03)
[2017-12-30] MEDS: aspirin 81mg tab.chew PO SCH (08:03)
[2017-12-30] MEDS: nicotine 14mg patch - 24hr TD SCH (08:04)
[2017-12-30] MEDS: pantoprazole 40 MG vial IV SCH (08:48)
[2017-12-30] MEDS ORDERED: furosemide 40mg/4ml inj IV ONE (09:25)
[2017-12-30] MEDS ORDERED: iohexol 300mg/ml 100ml inj. ONE (10:42)
[2017-12-30] MEDS ORDERED: MESSAGE TO PHARMACY PO ONE (12:55)
[2017-12-30] MEDS ORDERED: dextrose ORAL solution 15 GM/59 ML bottle PO PRN ×2 (12:55)
[2017-12-30] MEDS ORDERED: insulin regular, human vial - multi-dose SQ SCH (12:55)
[2017-12-30] MEDS ORDERED: glucagon, human recombinant 1mg kit SUBCUT PRN (12:55)
[2017-12-30] MEDS ORDERED: dextrose 50%-water 50ml dispensing syringe IV PRN ×2 (12:55)
[2017-12-30 13:57] LABS: HEMOGLOBIN A1C 6.5 % (4.5-6.2)
[2017-12-30] MEDS: dexmedetomidin/NS 400mcg/100ml 100 ML IV SCH (14:47)
[2017-12-30] MEDS: furosemide 40mg/4ml inj IV SCH (20:31)
[2017-12-30] MEDS: insulin glargine (Lantus) pen - multi-dose SQ SCH (21:00)
[2017-12-30 21:21] LABS: ABG BASE EXCESS 5.7 mmol/L (-2.0-3.0); ABG HCO3 31.1 mmol/L (22.0-26.0); ABG PH (T) 7.429 (7.350-7.450); ABG PO2 (T) 65.4 mmHg (83-108); ALLEN'S TEST Positive; FCOHb 0.3 % (0.5-1.5); FMetHb 0.1 % (0.3-1.12); FO2Hb 93.6 % (94-100); MINUTE VOLUME 10 L/min; PATIENT TEMPERATURE 36.8; PEEP 5 cm H2O; RESPIRATORY RATE (OBSERVED) 19 b/min; TOTAL HEMOGLOBIN 13.9 G/dl (12.0-16.0)
[2017-12-30] MEDS: midazolam 100mg in NS 100ml 100 ML IV PRN (21:54)
[2017-12-31] VITALS (23 sets, daily range): BP systolic 124–169; BP diastolic 59–90
[2017-12-31] MEDS: methylPREDNISolone sod succ 125mg/2ml vial IV SCH ×4 (01:59→20:32)
[2017-12-31] MEDS: mineral oil/petrolatum ophthal oint EACHEYE SCH ×4 (02:20→20:00)
[2017-12-31 02:50] LABS: BASOPHILS % (AUTO) 0 % (0-1); EOSINOPHILS % (AUTO) 0 % (0-6); HEMATOCRIT 38.2 % (35.0-45.0); HEMOGLOBIN 12.7 g/dl (12.0-16.0); LYMPHOCYTES # (AUTO) 0.3 X10'3 (1.1-4.8); LYMPHOCYTES % (AUTO) 3.3 % (21-51); MEAN CORPUSCULAR HEMOGLOBIN 30.5 PG (27.0-31.0); MEAN CORPUSCULAR HGB CONC 33.2 % (33.0-36.5); MEAN CORPUSCULAR VOLUME 91.9 FL (78-98); MEAN PLATELET VOLUME 9.1 FL (7.4-10.4); MONOCYTES # (AUTO) 0.3 X10'3 (0-0.9); MONOCYTES % (AUTO) 2.7 % (2-12); NEUTROPHILS # (AUTO) 9.8 X10'3 (1.8-7.7); PLATELET COUNT 168 X10'3 (140-440); RED BLOOD COUNT 4.15 X10'6 (4.20-5.60); RED CELL DISTRIBUTION WIDTH 15.5 % (11.5-14.5); WHITE BLOOD COUNT 10.4 X10'3 (4.5-11.0)
[2017-12-31 03:03] LABS: ALANINE AMINOTRANSFERASE 164 U/L (12-78); ALBUMIN 2.8 G/DL (3.4-5.0); ALBUMIN/GLOBULIN RATIO 0.9 (1.1-1.5); ALKALINE PHOSPHATASE 52 IU/L (46-116); ANION GAP 2 (8-16); ASPARTATE AMINO TRANSFERASE 114 U/L (10-37); BILIRUBIN,TOTAL 0.3 MG/DL (0.1-1.0); BLOOD UREA NITROGEN 39 MG/DL (7-18); BUN/CREATININE RATIO 53.4 (6.6-38.0); CALCIUM 9.9 MG/DL (8.5-10.1); CHLORIDE 113 MMOL/L (99-107); CREATININE 0.73 MG/DL (0.40-0.90); GLUCOSE 203 MG/DL (70-104); POTASSIUM 3.4 MMOL/L (3.5-5.1); SODIUM 152 MMOL/L (135-145); TOTAL CARBON DIOXIDE 37.1 MMOL/L (24-32); eGFR 81 ML/MIN
[2017-12-31] MEDS: ipratropium/albuterol 3ml nebule NEB SCH ×6 (03:22→23:26)
[2017-12-31] MEDS: lactobacillus rhamnosus 10,000 MMU CELLS/CAPSULE PO SCH ×2 (07:28→20:32)
[2017-12-31] MEDS: ascorbic acid 500mg tablet PO SCH (07:28)
[2017-12-31] MEDS: furosemide 40mg/4ml inj IV SCH (07:29)
[2017-12-31] MEDS: nicotine 14mg patch - 24hr TD SCH (07:29)
[2017-12-31] MEDS: calcium carbonate/vitamin D3 tablet PO SCH (07:29)
[2017-12-31] MEDS: pantoprazole 40 MG vial IV SCH (07:29)
[2017-12-31] MEDS: CefTRIAXone 2gm/D5W 50ml 50 ML IV SCH (07:30)
[2017-12-31] MEDS: enoxaparin 40mg/0.4ml syringe SUBCUT SCH (07:30)
[2017-12-31] MEDS: K, MAG and/or Phos replacement - Verify level? MC SCH (08:00)
[2017-12-31] MEDS: aspirin 81mg tab.chew PO SCH (08:45)
[2017-12-31] MEDS: fluticasone/vilanterol 200mcg/25mcg inhaler IH SCH (11:18)
[2017-12-31] MEDS: levoFLOXACIN 500mg tablet PO SCH (11:38)
[2017-12-31] MEDS ORDERED: lactulose 20gm/30ml cup PO PRN (11:45)
[2017-12-31] MEDS: dexmedetomidin/NS 400mcg/100ml 100 ML IV SCH (13:12)
[2017-12-31 20:00] LABS: MAGNESIUM 2.1 MG/DL (1.5-2.4); POTASSIUM 3.7 MMOL/L (3.5-5.1)
[2017-12-31] MEDS: HYDROcodone/acetaminophen 5mg/325mg tablet PO PRN (20:32)
[2017-12-31] MEDS: insulin glargine (Lantus) pen - multi-dose SQ SCH (20:35)
[2018-01-01] VITALS (18 sets, daily range): BP systolic 99–160; BP diastolic 59–87
[2018-01-01] MEDS: mineral oil/petrolatum ophthal oint EACHEYE SCH ×2 (01:53→07:55)
[2018-01-01] MEDS: methylPREDNISolone sod succ 125mg/2ml vial IV SCH ×4 (01:54→19:44)
[2018-01-01] MEDS: ipratropium/albuterol 3ml nebule NEB SCH ×6 (03:45→23:59)
[2018-01-01 03:49] LABS: BASOPHILS % (AUTO) 0.1 % (0-1); EOSINOPHILS # (AUTO) 0.2 X10'3 (0-0.9); EOSINOPHILS % (AUTO) 1.4 % (0-6); HEMATOCRIT 39.4 % (35.0-45.0); HEMOGLOBIN 13.1 g/dl (12.0-16.0); LYMPHOCYTES # (AUTO) 0.6 X10'3 (1.1-4.8); LYMPHOCYTES % (AUTO) 4.7 % (21-51); MEAN CORPUSCULAR HEMOGLOBIN 30.8 PG (27.0-31.0); MEAN CORPUSCULAR HGB CONC 33.4 % (33.0-36.5); MEAN CORPUSCULAR VOLUME 92.3 FL (78-98); MEAN PLATELET VOLUME 8.7 FL (7.4-10.4); MONOCYTES # (AUTO) 0.4 X10'3 (0-0.9); MONOCYTES % (AUTO) 3.6 % (2-12); NEUTROPHILS # (AUTO) 10.6 X10'3 (1.8-7.7); NEUTROPHILS % (AUTO) 90.2 % (42-75); PLATELET COUNT 171 X10'3 (140-440); RED BLOOD COUNT 4.27 X10'6 (4.20-5.60); RED CELL DISTRIBUTION WIDTH 14.7 % (11.5-14.5); WHITE BLOOD COUNT 11.7 X10'3 (4.5-11.0)
[2018-01-01 03:59] LABS: ALANINE AMINOTRANSFERASE 181 U/L (12-78); ALBUMIN 2.7 G/DL (3.4-5.0); ALBUMIN/GLOBULIN RATIO 0.9 (1.1-1.5); ALKALINE PHOSPHATASE 57 IU/L (46-116); ANION GAP 5 (8-16); ASPARTATE AMINO TRANSFERASE 67 U/L (10-37); BILIRUBIN,TOTAL 0.3 MG/DL (0.1-1.0); BLOOD UREA NITROGEN 30 MG/DL (7-18); BUN/CREATININE RATIO 47.6 (6.6-38.0); CALCIUM 9.9 MG/DL (8.5-10.1); CHLORIDE 103 MMOL/L (99-107); CREATININE 0.63 MG/DL (0.40-0.90); GLUCOSE 185 MG/DL (70-104); POTASSIUM 3.6 MMOL/L (3.5-5.1); PREALBUMIN 25.5 MG/DL (19-36); SODIUM 145 MMOL/L (135-145); TOTAL CARBON DIOXIDE 37.2 MMOL/L (24-32); TOTAL PROTEIN 5.7 G/DL (6.4-8.2); eGFR > 90 ML/MIN
[2018-01-01 07:16] LABS: MAGNESIUM 2.2 MG/DL (1.5-2.4); PHOSPHORUS 2.5 MG/DL (2.3-4.5)
[2018-01-01] MEDS: fluticasone/vilanterol 200mcg/25mcg inhaler IH SCH (07:27)
[2018-01-01] MEDS: pantoprazole 40 MG vial IV SCH (07:55)
[2018-01-01] MEDS: calcium carbonate/vitamin D3 tablet PO SCH (07:55)
[2018-01-01] MEDS: nicotine 14mg patch - 24hr TD SCH (07:55)
[2018-01-01] MEDS: ascorbic acid 500mg tablet PO SCH (07:56)
[2018-01-01] MEDS: enoxaparin 40mg/0.4ml syringe SUBCUT SCH (07:56)
[2018-01-01] MEDS: lactobacillus rhamnosus 10,000 MMU CELLS/CAPSULE PO SCH ×2 (07:56→19:44)
[2018-01-01] MEDS: aspirin 81mg tab.chew PO SCH (07:57)
[2018-01-01] MEDS: K, MAG and/or Phos replacement - Verify level? MC SCH (08:00)
[2018-01-01] MEDS: insulin Lispro (HumaLOG) vial - multi-dose SQ SCH ×3 (09:56→19:53)
[2018-01-01] MEDS: levoFLOXACIN 500mg tablet PO SCH (11:55)
[2018-01-01] MEDS: HYDROcodone/acetaminophen 5mg/325mg tablet PO PRN (19:45)
[2018-01-01] MEDS: insulin glargine (Lantus) pen - multi-dose SQ SCH (22:25)
[2018-01-02] MEDS: methylPREDNISolone sod succ 125mg/2ml vial IV SCH ×4 (01:55→19:36)
[2018-01-02 02:12] LABS: BASOPHILS % (AUTO) 0.3 % (0-1); EOSINOPHILS # (AUTO) 0.1 X10'3 (0-0.9); EOSINOPHILS % (AUTO) 1.1 % (0-6); HEMATOCRIT 40.4 % (35.0-45.0); HEMOGLOBIN 13.7 g/dl (12.0-16.0); LYMPHOCYTES # (AUTO) 0.7 X10'3 (1.1-4.8); LYMPHOCYTES % (AUTO) 5.6 % (21-51); MEAN CORPUSCULAR HGB CONC 33.8 % (33.0-36.5); MEAN CORPUSCULAR VOLUME 91.7 FL (78-98); MEAN PLATELET VOLUME 8.8 FL (7.4-10.4); MONOCYTES # (AUTO) 0.3 X10'3 (0-0.9); MONOCYTES % (AUTO) 2.9 % (2-12); NEUTROPHILS # (AUTO) 10.5 X10'3 (1.8-7.7); NEUTROPHILS % (AUTO) 90.1 % (42-75); PLATELET COUNT 172 X10'3 (140-440); RED BLOOD COUNT 4.41 X10'6 (4.20-5.60); RED CELL DISTRIBUTION WIDTH 14.5 % (11.5-14.5); WHITE BLOOD COUNT 11.6 X10'3 (4.5-11.0)
[2018-01-02 02:25] LABS: ALANINE AMINOTRANSFERASE 143 U/L (12-78); ALBUMIN 2.8 G/DL (3.4-5.0); ALKALINE PHOSPHATASE 52 IU/L (46-116); ANION GAP 2 (8-16); ASPARTATE AMINO TRANSFERASE 33 U/L (10-37); BILIRUBIN,TOTAL 0.3 MG/DL (0.1-1.0); BLOOD UREA NITROGEN 30 MG/DL (7-18); CALCIUM 9.8 MG/DL (8.5-10.1); CHLORIDE 102 MMOL/L (99-107); CREATININE 0.79 MG/DL (0.40-0.90); GLUCOSE 172 MG/DL (70-104); POTASSIUM 4.3 MMOL/L (3.5-5.1); SODIUM 144 MMOL/L (135-145); TOTAL CARBON DIOXIDE 39.7 MMOL/L (24-32); TOTAL PROTEIN 5.7 G/DL (6.4-8.2); eGFR 74 ML/MIN
[2018-01-02 03:00] VITALS: BP 138/53
[2018-01-02] MEDS: ipratropium/albuterol 3ml nebule NEB SCH ×6 (03:33→23:00)
[2018-01-02 06:00] VITALS: BP 111/60
[2018-01-02] MEDS: pantoprazole 40 MG vial IV SCH (07:47)
[2018-01-02] MEDS: enoxaparin 40mg/0.4ml syringe SUBCUT SCH (07:48)
[2018-01-02] MEDS: ascorbic acid 500mg tablet PO SCH (07:49)
[2018-01-02] MEDS: calcium carbonate/vitamin D3 tablet PO SCH (07:49)
[2018-01-02] MEDS: lactobacillus rhamnosus 10,000 MMU CELLS/CAPSULE PO SCH ×2 (07:50→19:36)
[2018-01-02] MEDS: aspirin 81mg tab.chew PO SCH (07:50)
[2018-01-02] MEDS: nicotine 14mg patch - 24hr TD SCH (08:00)
[2018-01-02] MEDS: K, MAG and/or Phos replacement - Verify level? MC SCH (08:00)
[2018-01-02] MEDS: fluticasone/vilanterol 200mcg/25mcg inhaler IH SCH (08:13)
[2018-01-02] MEDS: insulin Lispro (HumaLOG) vial - multi-dose SQ SCH ×3 (08:56→18:04)
[2018-01-02 11:00] VITALS: BP 140/60
[2018-01-02] MEDS: levoFLOXACIN 500mg tablet PO SCH (11:19)
[2018-01-02 19:00] VITALS: BP 103/69
[2018-01-02] MEDS: HYDROcodone/acetaminophen 5mg/325mg tablet PO PRN (19:36)
[2018-01-02] MEDS: insulin glargine (Lantus) pen - multi-dose SQ SCH (20:37)
[2018-01-02 23:00] VITALS: BP 146/62
[2018-01-03] MEDS: methylPREDNISolone sod succ 125mg/2ml vial IV SCH ×3 (01:42→14:54)
[2018-01-03 02:18] LABS: BASOPHILS # (AUTO) 0.1 X10'3 (0-0.2); BASOPHILS % (AUTO) 0.4 % (0-1); EOSINOPHILS # (AUTO) 0.2 X10'3 (0-0.9); EOSINOPHILS % (AUTO) 1.7 % (0-6); HEMATOCRIT 39.7 % (35.0-45.0); HEMOGLOBIN 13.4 g/dl (12.0-16.0); LYMPHOCYTES # (AUTO) 0.6 X10'3 (1.1-4.8); LYMPHOCYTES % (AUTO) 5.1 % (21-51); MEAN CORPUSCULAR HEMOGLOBIN 30.9 PG (27.0-31.0); MEAN CORPUSCULAR HGB CONC 33.7 % (33.0-36.5); MEAN CORPUSCULAR VOLUME 91.8 FL (78-98); MEAN PLATELET VOLUME 9.2 FL (7.4-10.4); MONOCYTES # (AUTO) 0.3 X10'3 (0-0.9); MONOCYTES % (AUTO) 2.3 % (2-12); NEUTROPHILS # (AUTO) 11.5 X10'3 (1.8-7.7); NEUTROPHILS % (AUTO) 90.5 % (42-75); PLATELET COUNT 160 X10'3 (140-440); RED BLOOD COUNT 4.32 X10'6 (4.20-5.60); RED CELL DISTRIBUTION WIDTH 14.5 % (11.5-14.5); WHITE BLOOD COUNT 12.7 X10'3 (4.5-11.0)
[2018-01-03 02:38] LABS: ALANINE AMINOTRANSFERASE 95 U/L (12-78); ALBUMIN 2.6 G/DL (3.4-5.0); ALKALINE PHOSPHATASE 46 IU/L (46-116); ANION GAP 2 (8-16); ASPARTATE AMINO TRANSFERASE 16 U/L (10-37); BILIRUBIN,TOTAL 0.3 MG/DL (0.1-1.0); BLOOD UREA NITROGEN 30 MG/DL (7-18); BUN/CREATININE RATIO 34.5 (6.6-38.0); CALCIUM 9.7 MG/DL (8.5-10.1); CHLORIDE 102 MMOL/L (99-107); CREATININE 0.87 MG/DL (0.40-0.90); GLUCOSE 168 MG/DL (70-104); POTASSIUM 4.7 MMOL/L (3.5-5.1); SODIUM 142 MMOL/L (135-145); TOTAL CARBON DIOXIDE 38.4 MMOL/L (24-32); TOTAL PROTEIN 5.3 G/DL (6.4-8.2); eGFR 66 ML/MIN
[2018-01-03 03:00] VITALS: BP 129/76
[2018-01-03] MEDS: ipratropium/albuterol 3ml nebule NEB SCH ×4 (03:00→15:32)
[2018-01-03 06:35] VITALS: BP 124/85
[2018-01-03] MEDS: K, MAG and/or Phos replacement - Verify level? MC SCH (08:00)
[2018-01-03] MEDS: nicotine 14mg patch - 24hr TD SCH (08:00)
[2018-01-03] MEDS: fluticasone/vilanterol 200mcg/25mcg inhaler IH SCH (08:28)
[2018-01-03] MEDS: aspirin 81mg tab.chew PO SCH (08:55)
[2018-01-03] MEDS: ascorbic acid 500mg tablet PO SCH (08:55)
[2018-01-03] MEDS: pantoprazole 40 MG vial IV SCH (08:56)
[2018-01-03] MEDS: lactobacillus rhamnosus 10,000 MMU CELLS/CAPSULE PO SCH (08:57)
[2018-01-03] MEDS: enoxaparin 40mg/0.4ml syringe SUBCUT SCH (09:00)
[2018-01-03] MEDS: insulin Lispro (HumaLOG) vial - multi-dose SQ SCH ×2 (09:10→13:22)
[2018-01-03 11:00] VITALS: BP 119/81
[2018-01-03] MEDS: levoFLOXACIN 500mg tablet PO SCH (11:53)
[2018-01-03] MEDS: calcium carbonate/vitamin D3 tablet PO SCH (11:54)
[2018-01-03 15:00] VITALS: BP 134/80
[2018-01-03] MEDS ORDERED: PRED10TA23 PO (15:02)
[2018-01-03] MEDS ORDERED: AMOX-580 PO (15:02)
== END 2018-01-03 16:55 | disposition home or self-care (01) | DRG 207 ==
LOC: ER 20:36 → ED HOLD 22:03 → ICU 2S 12-27 16:00 → PCU 3S 01-01 15:45
PROVIDERS: ADMIT Internal Medicine Critical Care Medicine; ATTEND Emergency Medicine
PROC: 5A1955Z Respiratory Ventilation, Greater than 96 Consecutive Hours (ICD-10-PCS; principal; 2017-12-26)
PROC: 0BH17EZ Insertion of Endotracheal Airway into Trachea, Via Natural or Artificial Opening (ICD-10-PCS; 2017-12-26)
PROC: 02HV33Z Insertion of Infusion Device into Superior Vena Cava, Percutaneous Approach (ICD-10-PCS; 2017-12-26)
PROC: B548ZZA Ultrasonography of Superior Vena Cava, Guidance (ICD-10-PCS; 2017-12-26)
DX: J96.21 Acute and chronic respiratory failure with hypoxia (principal); Z99.81 Dependence on supplemental oxygen; J44.0 Chronic obstructive pulmonary disease with (acute) lower respiratory infection; J44.1 Chronic obstructive pulmonary disease with (acute) exacerbation; F17.200 Nicotine dependence, unspecified, uncomplicated; F41.9 Anxiety disorder, unspecified; I10 Essential (primary) hypertension; J20.9 Acute bronchitis, unspecified; R91.1 Solitary pulmonary nodule; Z98.891 History of uterine scar from previous surgery; Z80.9 Family history of malignant neoplasm, unspecified; Z88.1 Allergy status to other antibiotic agents; Z91.018 Allergy to other foods; Z79.82 Long term (current) use of aspirin; Z79.51 Long term (current) use of inhaled steroids; Z82.5 Family history of asthma and other chronic lower respiratory diseases; Z79.899 Other long term (current) drug therapy; Z79.01 Long term (current) use of anticoagulants
CPT/HCPCS: 36415; 36556; 36600; 71045; 71260; 80053; 81001; 82803; 82810; 82948; 83036; 83605; 83735; 84100; 84132; 84134; 84145; 84484; 85018; 85025; 85610; 85730; 87040; 87070; 92616; 93005; 94002; 94003; 94640; 94760; 96374; 97110; 97116; 97162; 97530; 99291; A4357; A6213; A6449; A7015; C1758; C9113; J0696; J1650; J1815; J1940; J2250; J2270; J2405; J2704; J2920; J2930; J3010; J3480; J3490; J7030; Q9967

== ENCOUNTER 2018-11-06 17:25 | Emergency (ER) | payer BC, OTHER ==
[~2018-11-06] VITALS: Ht 160 cm; Wt 81.8 kg
[~2018-11-06 17:25] MED LIST changes: +ALBU2.5V7 NEB; -BUDE10.2 INH; -GUAI100L97 PO; -NICO-631 TD; +NICO-731 TD; +PANT-47 PO; -PANT40TA4 PO; -etomidate 2mg/ml inj. ONE; -rocuronium 10mg/ml inj IV ONE; -sod chloride 0.9% 10ml flush syringe IV ONE
[2018-11-06 18:23] LABS: BASOPHILS % (AUTO) 0.6 % (0-1); EOSINOPHILS # (AUTO) 0.1 X10'3 (0-0.9); EOSINOPHILS % (AUTO) 0.9 % (0-6); HEMATOCRIT 46.3 % (35.0-45.0); HEMOGLOBIN 15.6 g/dl (12.0-16.0); LYMPHOCYTES # (AUTO) 0.6 X10'3 (1.1-4.8); LYMPHOCYTES % (AUTO) 8.2 % (21-51); MEAN CORPUSCULAR HEMOGLOBIN 30.6 PG (27.0-31.0); MEAN CORPUSCULAR HGB CONC 33.7 g/dL (33.0-36.5); MEAN CORPUSCULAR VOLUME 90.8 FL (78-98); MEAN PLATELET VOLUME 8.6 FL (7.4-10.4); MONOCYTES # (AUTO) 0.7 X10'3 (0-0.9); MONOCYTES % (AUTO) 9.4 % (2-12); NEUTROPHILS # (AUTO) 6.2 X10'3 (1.8-7.7); NEUTROPHILS % (AUTO) 80.9 % (42-75); PLATELET COUNT 163 X10'3 (140-440); RED CELL DISTRIBUTION WIDTH 14.8 % (11.5-14.5); WHITE BLOOD COUNT 7.6 X10'3 (4.5-11.0)
[2018-11-06 18:42] LABS: ALANINE AMINOTRANSFERASE 31 U/L (12-78); ALBUMIN 3.6 G/DL (3.4-5.0); ALKALINE PHOSPHATASE 97 IU/L (46-116); ANION GAP 6 (8-16); ASPARTATE AMINO TRANSFERASE 19 U/L (10-37); BILIRUBIN,TOTAL 0.3 MG/DL (0.1-1.0); BLOOD UREA NITROGEN 12 MG/DL (7-18); BUN/CREATININE RATIO 15.4 (6.6-38.0); CALCIUM 10.3 MG/DL (8.5-10.1); CHLORIDE 107 MMOL/L (99-107); CREATININE 0.78 MG/DL (0.40-0.90); GLUCOSE 131 MG/DL (70-104); POTASSIUM 4.3 MMOL/L (3.5-5.1); SODIUM 142 MMOL/L (135-145); TOTAL CARBON DIOXIDE 29.3 MMOL/L (24-32); TOTAL PROTEIN 7.2 G/DL (6.4-8.2); eGFR 75 ML/MIN
--- NOTE | 2018-11-06 19:57 | NUR ---
PT SITTING UP AT BEDSIDE - MILD DISTRESS NOTED. SHE REMAINS ON HER NORMAL O2 AND IS ABLE TO SPEAK FULL SENTENCES. AT BEDSIDE.
[2018-11-06] MEDS ORDERED: ipratropium/albuterol 3ml nebule NEB ONE (20:00)
[2018-11-06] MEDS ORDERED: methylPREDNISolone sod succ 125mg/2ml vial IV ONE (20:00)
[2018-11-06] MEDS ORDERED: predniSONE 20 mg tablet PO ONE (20:25)
[2018-11-06 20:41] VITALS: BP 163/97
[2018-11-06] MEDS ORDERED: AZIT250T PO (20:42)
[2018-11-06] MEDS ORDERED: PRED10TA PO (20:42)
== END 2018-11-06 20:57 | disposition home or self-care (01) ==
LOC: ER 17:26
DX: J44.1 Chronic obstructive pulmonary disease with (acute) exacerbation (principal); Z88.6 Allergy status to analgesic agent; Z88.1 Allergy status to other antibiotic agents; Z91.018 Allergy to other foods; Z79.82 Long term (current) use of aspirin
CPT/HCPCS: 36415; 71046; 80053; 83605; 85025; 87040; 93005; 94640; 94760; 99284; J7512

== ENCOUNTER 2019-02-02 14:28 | Emergency (ER) | payer MEDICAID ==
[~2019-02-02] VITALS: Ht 162.6 cm; Wt 80.0 kg
[~2019-02-02 14:28] MED LIST changes: +AZIT250T PO; +PRED10TA PO
[2019-02-02 14:46] VITALS: BP 147/77
[2019-02-02] MEDS ORDERED: HYDROcodone/acetaminophen 10/325mg tab PO ONE (15:50)
[2019-02-02] MEDS ORDERED: HYDR-3965 PO (16:07)
== END 2019-02-02 17:15 | disposition home or self-care (01) ==
LOC: ER 14:29
DX: S42.211A Unspecified displaced fracture of surgical neck of right humerus, initial encounter for closed fracture (principal); J44.9 Chronic obstructive pulmonary disease, unspecified; Z88.6 Allergy status to analgesic agent; Z88.1 Allergy status to other antibiotic agents; Z91.018 Allergy to other foods; Z79.82 Long term (current) use of aspirin; W01.198A Fall on same level from slipping, tripping and stumbling with subsequent striking against other object, initial encounter; Y93.89 Activity, other specified; Y92.89 Other specified places as the place of occurrence of the external cause; Y99.8 Other external cause status
CPT/HCPCS: 29105; 73030; 99283

== ENCOUNTER 2019-02-05 09:06 | Emergency (ER) | payer MEDICAID ==
[~2019-02-05] VITALS: Ht 160 cm; Wt 5.0 kg
[~2019-02-05 09:06] MED LIST changes: +HYDR-3965 PO
[2019-02-05 09:26] VITALS: BP 154/81
--- NOTE | 2019-02-05 11:01 | NUR ---
RIGHT ARM MARITA WRAPS UNWRAPPED, SUPERVISOR LENS GENERATING PAGED TO EVALUATE SPLINT
[2019-02-05] MEDS ORDERED: HYDROcodone/acetaminophen 10/325mg tab PO ONE (11:25)
[2019-02-05] MEDS ORDERED: LORazepam 0.5 MG tablet PO ONE (11:25)
--- NOTE | 2019-02-05 11:39 | NUR ---
pt noticed a bruise on her forehead, stated she must have hit her head when she fell. provider examined pt's head, is aware of c/o
--- NOTE | 2019-02-05 11:40 | NUR ---
orthopedically impaired teacher was in and put new splint on pt's right arm
== END 2019-02-05 12:02 | disposition home or self-care (01) ==
LOC: ER 09:06
DX: S42.291D Other displaced fracture of upper end of right humerus, subsequent encounter for fracture with routine healing (principal); M79.89 Other specified soft tissue disorders; J44.9 Chronic obstructive pulmonary disease, unspecified; Z91.018 Allergy to other foods; Z88.1 Allergy status to other antibiotic agents; Z88.6 Allergy status to analgesic agent; Z79.82 Long term (current) use of aspirin; Z79.899 Other long term (current) drug therapy; Z98.890 Other specified postprocedural states; X58.XXXD Exposure to other specified factors, subsequent encounter
CPT/HCPCS: 29105; 99284

== ENCOUNTER 2019-04-06 15:38 | Outpatient (CLI) | payer MEDICAID ==
[~2019-04-06 15:38] MED LIST changes: -HYDR-3965 PO
== END 2019-04-06 16:30 | disposition home or self-care (01) ==
LOC: ORTHO 15:38
PROVIDERS: ATTEND Orthopaedic Surgery
DX: S42.291D Other displaced fracture of upper end of right humerus, subsequent encounter for fracture with routine healing (principal); I10 Essential (primary) hypertension; J44.9 Chronic obstructive pulmonary disease, unspecified; Z87.891 Personal history of nicotine dependence; X58.XXXD Exposure to other specified factors, subsequent encounter
CPT/HCPCS: 73030; G0463

== ENCOUNTER 2025-07-11 19:31 | Emergency (ER) | payer BC, OTHER ==
[~2025-07-11] VITALS: Ht 160 cm; Wt 42.0 kg
[~2025-07-11 19:31] MED LIST changes: -ALBU18HF2 INH; +ALBU2.5V13 NEB; -ALBU2.5V7 NEB; +ALBU6.7H14 INH; +AMOX-580 PO; +ASCO-139 PO; -ASCO500C15 PO; +ASPI-612 PO; -ASPI81TA30 PO; -AZIT250T PO; -CA C1TAB86 PO; +CALC500T63 PO; +CHOL400T8 PO; +FLUT1BLS3 PO; +FURO20TA4 PO; +HYDR-3964 PO; -LACT1CAP26 PO; +MAGN400T39 PO; +MONT-40 PO; +NICO-687 TD; -NICO-731 TD; -PANT-47 PO; +PANT40TA54 PO; -PRED10TA PO; +PRED20TA PO; +SERT-433 PO; +TIOT4MIS2 INH; +TRAZ-251 PO; +ZINC 15 MG PO
--- NOTE | 2025-07-11 19:58 | ELECTROCARDIOGRAPH REPORT ---
[facility] Test Date: 2025-07-11 Test Time: 19:56:38 Pat Name: LORI BRYSON Department: [facility]- Patient ID: [id number] Room: Gender: F [employer]or: : 1955 Requested By: LENCHO DAI Order Number: [id number] Reading MD: Dr. Ankit Avelar Measurements Intervals [place] Rate: 84 P: 76 MT: 157 QRS: 9 QRSD: 80 T: 62 QT: 371 QTc: 439 Interpretive Statements Sinus rhythm Probable LVH with secondary repol abnrm Minimal ST elevation, anterolateral leads Baseline wander in lead(s) V3 Electronically Signed On 07-12-2025 20:42:[address] Ankit Avelar Please click the below link to view image of tracing.
[2025-07-11 20:38] LABS: CREATININE 1.39 MG/DL (0.40-0.90); PRO BRAIN NATRIURETIC PEPTIDE 2493 PG/ML (0-125); TOTAL CARBON DIOXIDE 34.3 MMOL/L (24-32); eGFR 38 ML/MIN
--- NOTE | 2025-07-11 20:40 | RADIOLOGY REPORT ---
EXAM: CT CT HEAD INDICATION: HEADSTRIKE, LOC TECHNIQUE: CT images of the head were obtained without administration of IV contrast. CT scans at this facility use dose modulation, iterative reconstruction, and/or weight based dosing when appropriate to reduce radiation dose to as low as reasonably achievable. COMPARISON: CT CT CERVICAL SPINE on DOS: 07/11/25 FINDINGS: PARENCHYMA: No acute hemorrhage. There is no mass effect, midline shift, or herniation. There is preservation of the booker white differentiation. Mild scattered hypoattenuation along the periventricular, centrum semiovale, and deep white matter tracts, which are nonspecific however statistically most likely represent chronic microvascular ischemic change. Small bilateral lacunar infarction versus Virchow William space measuring 4 mm in the left basal ganglia. VENTRICLES: No hydrocephalus. EXTRA-AXIAL SPACES: No extra-axial fluid collections. OTHER: The bony structures are intact. Visualized portions of the paranasal sinuses and mastoid air cells are clear. IMPRESSION: 1. No CT evidence of an acute intracranial abnormality.
--- NOTE | 2025-07-11 20:41 | RADIOLOGY REPORT ---
EXAM: CT CT CERVICAL SPINE INDICATION: HEADSTRIKE, LOC TECHNIQUE: Non contrast axial images of the cervical spine have been obtained with coronal and sagittal reformatted images. CT scans at this facility use dose modulation, iterative reconstruction, and/or weight based dosing when appropriate to reduce radiation dose to as low as reasonably achievable. COMPARISON: CT CT HEAD on DOS: 07/11/25 FINDINGS: ANATOMY: Cervical lordosis is maintained. VERTEBRAL BODIES: The vertebral bodies are normal in height and alignment. The dens is intact, the lateral masses of C1 are normally aligned, and the atlantodental interval is normal for age. SPINAL CANAL: No significant spinal canal stenosis. INTERVERTEBRAL DISCS: No CT findings to suggest traumatic disc herniation or acute hematoma. SOFT TISSUES: There is no prevertebral soft tissue swelling. OTHER: Biapical pleural-parenchymal scarring. Small amount of fluid in bilateral posterior inferior mastoid air cells. The appearance of centrilobular emphysema. IMPRESSION: 1. No acute cervical spine fracture or malalignment.
--- NOTE | 2025-07-11 20:44 | RADIOLOGY REPORT ---
EXAM: DI CHEST,SINGLE VIEW HISTORY: CP TECHNIQUE: 1 view of the chest COMPARISON: CHEST,SINGLE VIEW on DOS: 01/29/23 FINDINGS/IMPRESSION: LUNGS: Small effusion. Trace right pleural effusion. Hyperinflation. Patchy unchanged areas of opacification in the left mid to lower lung zone and periphery of the right mid lung zone. MEDIASTINUM: Normal cardiac size BONES: No acute osseous abnormality. OTHER: None.
[2025-07-11] MEDS: HYDROcodone/acetaminophen 5mg/325mg tablet PO ONE (21:11)
[2025-07-11 21:56] LABS: MEAN PLATELET VOLUME 8.0 FL (7.4-10.4); RED CELL DISTRIBUTION WIDTH 15.7 % (11.5-14.5)
--- NOTE | 2025-07-12 00:53 | Physician Documentation ---
History of Present Illness ~ Chief Complaint: Mechanical Fall Stated Complaint: FALL Time Seen by MD: 20:34 Primary Medical Doctor: Dr. 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 +head strike without bleeding, no neuro deficits. Has history of R sided hip replacement. Lela LOC, fever, N/V/D, SOB, cough, chest pain. Tetanus within 5 Years?: No Medication Reconciliation Allergies: Coded Allergies: mushroom (Verified Allergy, Intermediate, 10/28/22) NAUSEA/VOMITING ibuprofen (Verified Allergy, Unknown, UPPER BACK PAIN, 10/28/22) erythromycin base (Verified Adverse Reaction, Unknown, GI UPSET, 10/28/22) levofloxacin (Verified Adverse Reaction, Unknown, ITCHING, 10/28/22) pt received multiple doses with no issue in 08/2014, 10/2014, 12/2017 Uncoded Allergies: MUSHROOMS (Allergy, Severe, N/V, 08/31/14) Scheduled Amox Tr/Potassium Clavulanate 875/125 MG (Augmentin 875/125 MG), 1 TAB PO BID Ascorbic Acid (Vitamin C), 1 TAB PO DAILY, (Reported) Aspirin (Aspir 81), 1 TAB PO DAILY, (Reported) Calcium Carbonate (Calcium), 2 TAB PO DAILY, (Reported) Cholecalciferol (Vitamin D), 1 TAB PO DAILY, (Reported) Fluticasone/Vilanterol (Breo Ellipta 200-25 Mcg INH), 1 PUFFS PO DAILY, (Reported) Furosemide (Furosemide), 1 TAB PO DAILY Losartan Potassium* (Cozaar*), 1 TAB PO DAILY Magnesium Oxide (Magnesium), 1 TAB PO DAILY, (Reported) Montelukast Sodium (Montelukast Sodium), 10 MG PO DAILY Nicotine 21 MG Patch* (Habitrol 21 MG Patch*), 1 PATCH TD DAILY Prednisone* (Prednisone*), 3 TAB PO DAILY Sertraline HCl (Sertraline HCl), 1 TAB PO HS, (Reported) Tiotropium [place] (Spiriva Respimat), 2 PUFFS INH DAILY, (Reported) Trazodone HCl (Trazodone HCl), 1 TAB PO HS, (Reported) [Zinc 15MG], 1 TAB PO DAILY, (Reported) Scheduled PRN Albuterol Sulfate (Proventil Hfa), 2 PUFFS INH Q6H PRN for SOB or wheezing, (Reported) Albuterol Sulfate (Albuterol Sulfate), 1 VIAL NEB Q4H PRN for wheezing, (Reported) Hydrocodone Bit/Acetaminophen (Hydrocodon-Acetaminophen 5-325), 1 TAB PO Q8H PRN for severe pain (7-10) Hydrocodone Bit/Acetaminophen 5/325 MG ([place] 5/325 MG), 1-2 TAB PO Q4-6 hours PRN for pain Pantoprazole Sodium (Pantoprazole Sodium), 1 TAB PO DAILY PRN for stomache upset, (Reported) Past Medical History Past Medical History: COPD, Pneumonia Past Surgical History: , tonsillectomy Other Past Surgical History: Hemorrhoidectomy Patient History: (COPD) Chronic obstructive lung disease FATHER, Onset:Unknown MOTHER BROTHER SISTER BROTHER1 (Cancer) Malignant carcinoid tumor FH: breast cancer MOTHER SISTER FH: lung cancer FATHER BROTHER Alcohol Use: None Drug Use: none Lives with: Spouse Lives In: Home Occupation: employed, retired Review of Systems All Other Systems at this time: Reviewed and Negative Physical Exam Vital Signs: RN Vital Signs have been reviewed: Yes, Temperature: 98.1, Source: Oral, Heart Rate: 70, Respiratory Rate: 16, BP: 190/93, Pulse Oximetry: 99, Weight: 42.000 Oxygen Flow Rate: 0 Physical Exam General: Alert, no apparent distress. Neck: Full range of motion. Respiratory: Lungs clear, no respiratory distress. Chest: No accessory muscle use. Cardiovascular: Regular rate and rhythm, no murmurs. Gastrointestinal: Soft,TTP, nondistended. Bowels sounds present. Extremities: Normal range of motion, no deformity. R greater trochanter tenderness. Neurologic: Oriented x4. Psychiatric: Normal mood and affect. Skin: Normal color, warm and dry. No edema, no ecchymosis. Progress Results/Orders Results/Orders Orders - LENCHO DAI MD Chest,Single View (07/11/25 20:33) Monitor (07/11/25 19:52) Saline Lock (07/11/25 19:52) Oxygen (07/11/25 19:52) Hs Troponin I W Calculations (07/11/25 22:52) Ct Head (07/11/25 20:24) Ct Cervical Spine (07/11/25 20:24) Hip Unilateral 2 Views (07/11/25 20:33) Completed Orders - LENCHO DAI MD Chest,Single View (07/11/25 20:33) BMP (07/11/25 19:52) PBNP (07/11/25 19:52) Electrocardiogram (07/11/25 19:52) Hs Troponin I W Calculations (07/11/25 19:52) Hs Troponin I W Calculations (07/11/25 21:52) Ct Head (07/11/25 20:24) Ct Cervical Spine (07/11/25 20:24) Hip Unilateral 2 Views (07/11/25 20:33) Hydrocodone/Apap 5/325mg Tab ([place] 5/32 (07/11/25 20:50) Hydrocodone/Apap 5/325mg Tab ([place] 5/32 (07/12/25 00:50) Oxycodone/Acetaminophen Tablet (Percocet (07/12/25 00:55) Losartan Tablet (Cozaar Tablet) (07/12/25 01:45) Medications Received in ER Medications (Trade) Dose Ordered Sig/Megan Route PRN Reason Start Time Stop Time Status Last Admin Dose Admin (Percocet 5-325mg tab) 1 tab ONCE ONCE PO 07/12/25 00:55 07/12/25 00:57 DC 07/12/25 01:07 1 TAB (Cozaar tablet) 50 mg ONCE PO 07/12/25 01:45 07/12/25 02:11 DC 07/12/25 01:55 50 MG Vital Signs 07/11/25 07/11/25 07/11/25 07/11/25 19:44 20:44 20:44 21:11 Temp 98.1 Pulse 91 84 Resp 16 16 16 16 B/P (MAP) 153/77 192/83 (119) Pulse Ox 94 97 O2 Flow Rate 2.0 0 07/12/25 07/12/25 07/12/25 07/12/25 00:21 01:07 01:20 01:48 Temp 98.1 Pulse 70 74 Resp 16 18 16 18 B/P (MAP) 190/93 (125) 182/90 (120) Pulse Ox 99 98 O2 Flow Rate 0 2.0 07/12/25 07/12/25 01:55 01:58 Temp 98.1 Pulse 77 80 Resp 18 B/P (MAP) 174/91 Pulse Ox 100 Laboratory Tests Test 07/11/25 19:48 07/11/25 20:02 07/11/25 21:31 07/11/25 22:05 Glucometer 118 H CBC Comment Sodium Level 143 Potassium Level 3.9 Chloride Level 106 Carbon Dioxide Level 34.3 H Anion Gap 3 L Blood Urea Nitrogen 22 H Creatinine 1.39 H Estimated GFR/1.73 m2 38 BUN/Creatinine Ratio 15.8 Glucose Level 118 H Calcium Level 10.7 H Troponin I High Sensitivity 16 15 Pro-B-Type Natriuretic Peptide 2493 H Albumin 3.1 L Chemistry Comments White Blood Count 8.5 Red Blood Count 3.16 L Hemoglobin 10.0 L Hematocrit 29.4 L Mean Corpuscular Volume 93.1 Mean Corpuscular Hemoglobin 31.8 H Mean Corpuscular Hemoglobin Concent 34.1 Red Cell Distribution Width 15.7 H Platelet Count 152 Mean Platelet Volume 8.0 Neutrophils (%) (Auto) 81.2 H Lymphocytes (%) (Auto) 11.9 L Monocytes (%) (Auto) 5.0 Eosinophils (%) (Auto) 1.2 Basophils (%) (Auto) 0.7 Neutrophils # (Auto) 6.9 Lymphocytes # (Auto) 1.0 L Monocytes # (Auto) 0.4 Eosinophils # (Auto) 0.1 Basophils # (Auto) 0.1 Troponin I High Sens Percent Delta 6 Troponin I Hi Sens Absolute Change -1 Medical Decision Making Additional information obtaine: N/A Findings 70 year old female as above s/p ground level fall. Exam and vitals nonspecific, imaging demonstrated fracture of greater trochanter but otherwise unremarkable. CT head interpreted by me demonstrated no mass/shift/bleed. Pain medication, refilled blood pressure medication as well. Ambulated, return precautions. Differential Dx:Considerations: Include: Other Additional Comment Ddx = fracture, sprain, strain, contusion Departure Disposition: HOME / SELF CARE / HOMELESS Impression: Primary Impression: Fracture of greater trochanter of femur Condition: Stable Discharge Instructions: Fall Prevention in the Home, Adult, [id number] Referrals: NO PRIMARY CARE PROVIDER (PCP) Prescriptions Hydrocodone Bit/Acetaminophen 5/325 MG ([place] 5/325 MG) 5 Mg/325 Mg Tablet 1-2 TAB PO Q4-6 hours PRN for pain, #16 TAB Prov: LENCHO DAI MD 07/12/25 Losartan Potassium* (Cozaar*) 25 Mg Tablet 1 TAB PO DAILY for 30 Days, #30 TAB Prov: LENCHO DAI MD 07/12/25 Education Educated: Patient Educated regarding: diagnosis, treatment, prognosis, need for follow up Signature Scribe Signature: . Attestation: . LENCHO DAI MD Jul 12, 2025 00:53
[2025-07-12] MEDS: HYDROcodone/acetaminophen 5mg/325mg tablet PO ONE (00:58)
[2025-07-12] MEDS: oxyCODONE/APAP 5-325mg tablet PO ONE (01:07)
[2025-07-12] MEDS ORDERED: LOSA-415 PO (01:32)
[2025-07-12] MEDS ORDERED: HYDR-3965 PO (01:57)
[2025-07-12 01:58] VITALS: BP 174/91; PULSE 80; RESP 18; TEMP 98.1; O2SAT 100
--- NOTE | 2025-07-12 09:04 | RADIOLOGY REPORT ---
CLINICAL INDICATION: MECH FALL, pain TECHNIQUE: HIP [id number] HIP UNILATERAL 2 VIEWS Comparison: DI CHEST,SINGLE VIEW on DOS: 07/11/25, CHEST,SINGLE VIEW on DOS: 01/29/23 FINDINGS/IMPRESSION: : Right hip hemiarthroplasty. Minimally displaced fracture fragment at the lateral aspect of the proximal right femur just below the level of the greater trochanter. Acuity is uncertain but on imaging this appears acute. Please correlate with the site of pain and any known prior fracture here. SA
== END 2025-07-12 02:11 | disposition home or self-care (01) ==
LOC: ER 19:31
DX: S72.111A Displaced fracture of greater trochanter of right femur, initial encounter for closed fracture (principal); R51.9 Headache, unspecified; R06.02 Shortness of breath; J44.9 Chronic obstructive pulmonary disease, unspecified; Z88.1 Allergy status to other antibiotic agents; Z88.6 Allergy status to analgesic agent; Z88.8 Allergy status to other drugs, medicaments and biological substances; Z90.89 Acquired absence of other organs; W01.10XA Fall on same level from slipping, tripping and stumbling with subsequent striking against unspecified object, initial encounter; Y93.89 Activity, other specified; Y92.89 Other specified places as the place of occurrence of the external cause; Y99.8 Other external cause status
CPT/HCPCS: 36415; 70450; 71045; 72125; 73502; 80048; 82948; 83880; 84484; 85025; 93005; 99285; L0172